=== PATIENT | female | born 1970 | race American Indian/Alaskan Native ===

== ENCOUNTER 2020-09-01 12:52 | Emergency (ER) | payer MEDICAID ==
[2020-09-01 13:33] LABS: Basophils # (Auto) 0.1 K/mm3 (0.0-0.1); Basophils % (Auto) 1.3 % (0.0-1.8); Eosinophils # (Auto) 0.1 K/mm3 (0.0-0.4); Eosinophils % (Auto) 1.1 % (0.0-4.3); Hematocrit 37.8 % (30.3-42.9); Hemoglobin 12.7 gm/dl (10.1-14.3); Lymphocytes # (Auto) 4.5 K/mm3 (1.2-5.4); Lymphocytes % (Auto) 45.2 % (13.4-35.0); Mean Corpuscular HGB Conc 34 % (30-34); Mean Corpuscular Volume 84 fl (79-97); Monocytes # (Auto) 0.5 K/mm3 (0.0-0.8); Monocytes % (Auto) 5.3 % (0.0-7.3); Platelet Count 382 K/mm3 (140-440); Red Blood Count 4.52 M/mm3 (3.65-5.03); Red Cell Distribution Width 13.5 % (13.2-15.2)
[2020-09-01 13:42] LABS: Bacteria,Urine 1+ /HPF (Negative); Bilirubin,Urine NEG (Negative); Blood,Urine NEG (Negative); Color,Urine Straw (Yellow); Mucus,Urine FEW /HPF; Protein,Urine <15 mg/dL mg/dL (Negative); Urobilinogen,Urine < 2.0 mg/dL (<2.0)
[2020-09-01 13:48] LABS: Amphetamine Screen,Urine Negative; Benzodiazepines Screen,Urine Negative; Methadone Screen,Urine Negative; Opiate Screen,Urine Negative
[2020-09-01 13:50] LABS: BUN/Creatinine Ratio 20; Blood Urea Nitrogen 18 mg/dL (7-17); Calcium 9.3 mg/dL (8.4-10.2); Hemolysis Index 11
[2020-09-01] MEDS ORDERED: INSULIN REGULAR, HUMAN 100 UNIT/ML 3ML VIAL SUB-Q ONE (13:59)
[2020-09-01 14:00] LABS: Creatine Kinase MB 3.1 ng/mL (0.0-4.0)
--- NOTE | 2020-09-01 14:00 | Emergency Department Report ---
ED General Adult HPI - General Chief complaint: Psych Stated complaint: MH EVAL Time Seen by Provider: 09/01/20 13:17 Source: patient Mode of arrival: Ambulatory Limitations: No Limitations - History of Present Illness Severity scale (0 -10): 0 - Related Data Home Medications Medication Instructions Recorded Confirmed Last Taken Amlodipine Besylate 10 mg PO QDAY 09/01/20 09/01/20 Unknown AtorvaSTATin [Lipitor] 10 mg PO QHS 09/01/20 09/01/20 Unknown Levothyroxine Sodium 125 mcg PO QAM 09/01/20 09/01/20 Unknown Metformin HCl [Glucophage] 1,000 mg PO QDAY 09/01/20 09/01/20 Unknown OXcarbazepine [Trileptal] 150 mg PO BID 09/01/20 09/01/20 Unknown Omeprazole 40 mg PO QDAY 09/01/20 09/01/20 Unknown Sertraline HCl [Zoloft] 100 mg PO QDAY 09/01/20 09/01/20 Unknown hydrOXYzine PAMOATE [Vistaril] 100 mg PO PRN PRN 09/01/20 09/01/20 Unknown Allergies Allergy/AdvReac Type Severity Reaction Status Date / Time No Known Allergies Allergy Verified 09/01/20 13:31 ED Review of Systems ROS: Stated complaint: MH EVAL Other details as noted in HPI ED Past Medical Hx - Past Medical History Previous Medical History?: Yes Hx Hypertension: Yes Hx Diabetes: Yes Hx Psychiatric Treatment: Yes (PTSD depression, Bipolar) Additional medical history: Anxiety, Traumatic head injury - Surgical History Past Surgical History?: Yes Hx Cholecystectomy: Yes Additional Surgical History: Head injury, Thyroid surgery - Social History Smoking Status: Current Every Day Smoker Substance Use Type: Alcohol, Cocaine, Marijuana, Prescribed - Medications Home Medications: Home Medications Medication Instructions Recorded Confirmed Last Taken Type Amlodipine Besylate 10 mg PO QDAY 09/01/20 09/01/20 Unknown History AtorvaSTATin [Lipitor] 10 mg PO QHS 09/01/20 09/01/20 Unknown History Levothyroxine Sodium 125 mcg PO QAM 09/01/20 09/01/20 Unknown History Metformin HCl [Glucophage] 1,000 mg PO QDAY 09/01/20 09/01/20 Unknown History OXcarbazepine [Trileptal] 150 mg PO BID 09/01/20 09/01/20 Unknown History Omeprazole 40 mg PO QDAY 09/01/20 09/01/20 Unknown History Sertraline HCl [Zoloft] 100 mg PO QDAY 09/01/20 09/01/20 Unknown History hydrOXYzine PAMOATE [Vistaril] 100 mg PO PRN PRN 09/01/20 09/01/20 Unknown History ED Physical Exam - General Limitations: No Limitations ED Course Vital Signs 09/01/20 12:59 Temperature 98 F Pulse Rate 75 Respiratory 20 Rate Blood Pressure 143/69 O2 Sat by Pulse 97 Oximetry ED Medical Decision Making - Lab Data Result diagrams: 09/01/20 13:09 09/01/20 13:09 Laboratory Results - last 24 hr 09/01/20 09/01/20 09/01/20 13:09 13:09 13:09 WBC RBC Hgb Hct MCV MCH MCHC RDW Plt Count Lymph % (Auto) [place] % (Auto) Eos % (Auto) Baso % (Auto) Lymph # (Auto) [place] # (Auto) Eos # (Auto) Baso # (Auto) Seg Neutrophils % Seg Neutrophils # Sodium 135 L Potassium 4.2 Chloride 98.1 Carbon Dioxide 22 Anion Gap 19 BUN 18 H Creatinine 0.9 Estimated GFR > 60 BUN/Creatinine Ratio 20 Glucose 395 H Calcium 9.3 Urine Color Urine Turbidity Urine pH Ur Specific [place] Urine Protein Urine Glucose (UA) Urine Ketones Urine Blood Urine Nitrite Urine Bilirubin Urine Urobilinogen Ur Leukocyte Esterase Urine WBC (Auto) Urine RBC (Auto) U Epithel Cells (Auto) Urine Bacteria (Auto) Urine Mucus Salicylates < 0.3 L Urine Opiates Screen Urine Methadone Screen Acetaminophen 5.0 L Ur Barbiturates Screen Ur Phencyclidine Scrn Ur Amphetamines Screen U Benzodiazepines Scrn Plasma/Serum Alcohol 09/01/20 09/01/20 09/01/20 13:09 13:09 13:21 WBC 9.9 RBC 4.52 Hgb 12.7 Hct 37.8 MCV 84 MCH 28 MCHC 34 RDW 13.5 Plt Count 382 Lymph % (Auto) 45.2 H [place] % (Auto) 5.3 Eos % (Auto) 1.1 Baso % (Auto) 1.3 Lymph # (Auto) 4.5 [place] # (Auto) 0.5 Eos # (Auto) 0.1 Baso # (Auto) 0.1 Seg Neutrophils % 47.1 Seg Neutrophils # 4.7 Sodium Potassium Chloride Carbon Dioxide Anion Gap BUN Creatinine Estimated GFR BUN/Creatinine Ratio Glucose Calcium Urine Color Straw Urine Turbidity Clear Urine pH 5.0 Ur Specific [place] 1.025 Urine Protein <15 mg/dl Urine Glucose (UA) >=500 Urine Ketones Neg Urine Blood Neg Urine Nitrite Neg Urine Bilirubin Neg Urine Urobilinogen < 2.0 Ur Leukocyte Esterase Neg Urine WBC (Auto) 2.0 Urine RBC (Auto) 2.0 U Epithel Cells (Auto) 2.0 Urine Bacteria (Auto) 1+ Urine Mucus Few Salicylates Urine Opiates Screen Urine Methadone Screen Acetaminophen Ur Barbiturates Screen Ur Phencyclidine Scrn Ur Amphetamines Screen U Benzodiazepines Scrn Plasma/Serum Alcohol < 0.01 09/01/20 13:21 WBC RBC Hgb Hct MCV MCH MCHC RDW Plt Count Lymph % (Auto) [place] % (Auto) Eos % (Auto) Baso % (Auto) Lymph # (Auto) [place] # (Auto) Eos # (Auto) Baso # (Auto) Seg Neutrophils % Seg Neutrophils # Sodium Potassium Chloride Carbon Dioxide Anion Gap BUN Creatinine Estimated GFR BUN/Creatinine Ratio Glucose Calcium Urine Color Urine Turbidity Urine pH Ur Specific [place] Urine Protein Urine Glucose (UA) Urine Ketones Urine Blood Urine Nitrite Urine Bilirubin Urine Urobilinogen Ur Leukocyte Esterase Urine WBC (Auto) Urine RBC (Auto) U Epithel Cells (Auto) Urine Bacteria (Auto) Urine Mucus Salicylates Urine Opiates Screen Negative Urine Methadone Screen Negative Acetaminophen Ur Barbiturates Screen Negative Ur Phencyclidine Scrn Negative Ur Amphetamines Screen Negative U Benzodiazepines Scrn Negative Plasma/Serum Alcohol Critical care attestation.: If time is entered above; I have spent that time in minutes in the direct care of this critically ill patient, excluding procedure time. ED Disposition Condition: Stable
[2020-09-01 14:01] LABS: Alanine Aminotransferase 33 units/L (7-56); Albumin 4.3 g/dL (3.9-5)
[2020-09-01 14:04] LABS: Bilirubin,Direct < 0.2 mg/dL (0-0.2)
[2020-09-01] MEDS ORDERED: ALUM-MAG HYDROXIDE-SIMETHICONE 200-200-20MG/5ML ORAL LIQD 30 ML PO PRN (14:06)
[2020-09-01] MEDS ORDERED: MAGNESIUM HYDROXIDE (MOM) ORAL LIQD UDC PO PRN (14:06)
[2020-09-01] MEDS ORDERED: ACETAMINOPHEN 325 MG TAB PO PRN (14:06)
--- NOTE | 2020-09-01 14:14 | Emergency Department Report ---
ED Psych HPI - General Chief Complaint: Psych Stated Complaint: MH EVAL Time Seen by Provider: 09/01/20 13:17 Source: patient Mode of arrival: Ambulatory - History of Present Illness Initial Comments: This is a 50-year-old type II diabetic female with history of hypertension and m ental health disorder. She states that she was last admitted to a mental health facility approximately 2 years ago. This is her first apparent visit to this facility within our electronic medical record system. She does bring her prescription bottles along with her. Her compliance is questionable. She is here she states because of a failed meeting with her related to breaking a lease. She states that she has been depressed for quite some time because of his infidelity. She states that she did not meet with him because he was with another woman. It appears that she does have delusional content affecting her ideation and affect. She is emotionally labile. She denies hallucinosis. She was said to be "paranoid" at triage. When asked why she directed herself to the emergency room today she told me, "I want to get a gun so my would hurt like I do". She does not admit any violent behavior, self-destructive behavior or paranoid ideation per se. She is not voicing any medical type symptoms other than vague abdominal discomfort and running out of her gabapentin. MD Complaint: suicidal ideation (Did also mention of suicidal ideation as well as homicidal thoughts) -: days(s) (Perhaps this is recurrent. No prior records available.) Associated Psychiatric Symptoms: suicidal ideation, homicidal ideation History of same: Yes Quality: constant Improves With: none Worsens With: none Context: not taking psychiatric (Possibly) Associated Symptoms: denies other symptoms (Denies listed symptoms) Treatments Prior to Arrival: none If Self Harm: admits thoughts of - Related Data Home Medications Medication Instructions Recorded Confirmed Last Taken Amlodipine Besylate 10 mg PO QDAY 09/01/20 09/01/20 Unknown AtorvaSTATin [Lipitor] 10 mg PO QHS 09/01/20 09/01/20 Unknown Levothyroxine Sodium 125 mcg PO QAM 09/01/20 09/01/20 Unknown Metformin HCl [Glucophage] 1,000 mg PO QDAY 09/01/20 09/01/20 Unknown OXcarbazepine [Trileptal] 150 mg PO BID 09/01/20 09/01/20 Unknown Omeprazole 40 mg PO QDAY 09/01/20 09/01/20 Unknown Sertraline HCl [Zoloft] 100 mg PO QDAY 09/01/20 09/01/20 Unknown hydrOXYzine PAMOATE [Vistaril] 100 mg PO PRN PRN 09/01/20 09/01/20 Unknown Allergies Allergy/AdvReac Type Severity Reaction Status Date / Time No Known Allergies Allergy Verified 09/01/20 13:31 ED Review of Systems ROS: Stated complaint: MH EVAL Other details as noted in HPI Constitutional: denies: chills, fever Eyes: denies: eye pain, eye discharge, vision change ENT: denies: ear pain, throat pain Respiratory: denies: cough, shortness of breath, wheezing Cardiovascular: denies: chest pain, palpitations Endocrine: no symptoms reported Gastrointestinal: abdominal pain (Vague abdominal discomfort). denies: nausea, diarrhea Genitourinary: denies: urgency, dysuria, discharge Musculoskeletal: denies: back pain, joint swelling, arthralgia Skin: denies: rash, lesions Neurological: denies: headache, weakness, paresthesias Psychiatric: denies: anxiety, depression Hematological/Lymphatic: denies: easy bleeding, easy bruising ED Past Medical Hx - Past Medical History Previous Medical History?: Yes Hx Hypertension: Yes Hx Diabetes: Yes Hx Psychiatric Treatment: Yes (PTSD depression, Bipolar) Additional medical history: Anxiety, Traumatic head injury - Surgical History Past Surgical History?: Yes Hx Cholecystectomy: Yes Additional Surgical History: Head injury, Thyroid surgery - Social History Smoking Status: Current Every Day Smoker Substance Use Type: Alcohol, Cocaine, Marijuana, Prescribed - Medications Home Medications: Home Medications Medication Instructions Recorded Confirmed Last Taken Type Amlodipine Besylate 10 mg PO QDAY 09/01/20 09/01/20 Unknown History AtorvaSTATin [Lipitor] 10 mg PO QHS 09/01/20 09/01/20 Unknown History Levothyroxine Sodium 125 mcg PO QAM 09/01/20 09/01/20 Unknown History Metformin HCl [Glucophage] 1,000 mg PO QDAY 09/01/20 09/01/20 Unknown History OXcarbazepine [Trileptal] 150 mg PO BID 09/01/20 09/01/20 Unknown History Omeprazole 40 mg PO QDAY 09/01/20 09/01/20 Unknown History Sertraline HCl [Zoloft] 100 mg PO QDAY 09/01/20 09/01/20 Unknown History hydrOXYzine PAMOATE [Vistaril] 100 mg PO PRN PRN 09/01/20 09/01/20 Unknown History ED Physical Exam - General Limitations: Physical Limitation, Other (Psychiatric disorder) General appearance: alert, in no apparent distress - Head Head exam: Present: atraumatic, normocephalic - Eye Eye exam: Present: normal appearance. Absent: scleral icterus - ENT ENT exam: Present: mucous membranes moist - Neck Neck exam: Present: normal inspection - Respiratory Respiratory exam: Present: normal lung sounds bilaterally. Absent: respiratory distress - Cardiovascular Cardiovascular Exam: Present: regular rate, normal rhythm. Absent: systolic murmur, diastolic murmur, rubs, gallop - GI/Abdominal GI/Abdominal exam: Present: soft, normal bowel sounds. Absent: distended, tenderness, guarding, rebound, rigid - Extremities Exam Extremities exam: Present: normal inspection - Back Exam Back exam: Present: normal inspection - Neurological Exam Neurological exam: Present: alert, oriented X3, CN II-XII intact, normal gait. Absent: motor sensory deficit - Psychiatric Psychiatric exam: Present: agitated, anxious, flat affect - Skin Skin exam: Present: warm, dry, intact, normal color. Absent: rash ED Course Vital Signs 09/01/20 12:59 Temperature 98 F Pulse Rate 75 Respiratory 20 Rate Blood Pressure 143/69 O2 Sat by Pulse 97 Oximetry - Reevaluation(s) Reevaluation #1: 1013 was initiated. Medical management of the patient's hyperglycemia was initiated. 09/01/20 14:17 ED Medical Decision Making - Lab Data Result diagrams: 09/01/20 13:09 09/01/20 13:09 Laboratory Results - last 24 hr 09/01/20 09/01/20 09/01/20 13:09 13:09 13:09 WBC RBC Hgb Hct MCV MCH MCHC RDW Plt Count Lymph % (Auto) [place] % (Auto) Eos % (Auto) Baso % (Auto) Lymph # (Auto) [place] # (Auto) Eos # (Auto) Baso # (Auto) Seg Neutrophils % Seg Neutrophils # Sodium 135 L Potassium 4.2 Chloride 98.1 Carbon Dioxide 22 Anion Gap 19 BUN 18 H Creatinine 0.9 Estimated GFR > 60 BUN/Creatinine Ratio 20 Glucose 395 H Calcium 9.3 Magnesium Total Bilirubin Direct Bilirubin AST ALT Alkaline Phosphatase Total Creatine Kinase CK-MB (CK-2) CK-MB (CK-2) Rel Index Total Protein Albumin Albumin/Globulin Ratio Urine Color Urine Turbidity Urine pH Ur Specific [place] Urine Protein Urine Glucose (UA) Urine Ketones Urine Blood Urine Nitrite Urine Bilirubin Urine Urobilinogen Ur Leukocyte Esterase Urine WBC (Auto) Urine RBC (Auto) U Epithel Cells (Auto) Urine Bacteria (Auto) Urine Mucus Salicylates < 0.3 L Urine Opiates Screen Urine Methadone Screen Acetaminophen 5.0 L Ur Barbiturates Screen Ur Phencyclidine Scrn Ur Amphetamines Screen U Benzodiazepines Scrn Plasma/Serum Alcohol 09/01/20 09/01/20 09/01/20 13:09 13:09 13:09 WBC 9.9 RBC 4.52 Hgb 12.7 Hct 37.8 MCV 84 MCH 28 MCHC 34 RDW 13.5 Plt Count 382 Lymph % (Auto) 45.2 H [place] % (Auto) 5.3 Eos % (Auto) 1.1 Baso % (Auto) 1.3 Lymph # (Auto) 4.5 [place] # (Auto) 0.5 Eos # (Auto) 0.1 Baso # (Auto) 0.1 Seg Neutrophils % 47.1 Seg Neutrophils # 4.7 Sodium Potassium Chloride Carbon Dioxide Anion Gap BUN Creatinine Estimated GFR BUN/Creatinine Ratio Glucose Calcium Magnesium 1.60 L Total Bilirubin 0.30 Direct Bilirubin < 0.2 AST 24 ALT 33 Alkaline Phosphatase 133 H Total Creatine Kinase 226 H CK-MB (CK-2) 3.1 CK-MB (CK-2) Rel Index 1.3 Total Protein 7.6 Albumin 4.3 Albumin/Globulin Ratio 1.3 Urine Color Urine Turbidity Urine pH Ur Specific [place] Urine Protein Urine Glucose (UA) Urine Ketones Urine Blood Urine Nitrite Urine Bilirubin Urine Urobilinogen Ur Leukocyte Esterase Urine WBC (Auto) Urine RBC (Auto) U Epithel Cells (Auto) Urine Bacteria (Auto) Urine Mucus Salicylates Urine Opiates Screen Urine Methadone Screen Acetaminophen Ur Barbiturates Screen Ur Phencyclidine Scrn Ur Amphetamines Screen U Benzodiazepines Scrn Plasma/Serum Alcohol < 0.01 09/01/20 09/01/20 13:21 13:21 WBC RBC Hgb Hct MCV MCH MCHC RDW Plt Count Lymph % (Auto) [place] % (Auto) Eos % (Auto) Baso % (Auto) Lymph # (Auto) [place] # (Auto) Eos # (Auto) Baso # (Auto) Seg Neutrophils % Seg Neutrophils # Sodium Potassium Chloride Carbon Dioxide Anion Gap BUN Creatinine Estimated GFR BUN/Creatinine Ratio Glucose Calcium Magnesium Total Bilirubin Direct Bilirubin AST ALT Alkaline Phosphatase Total Creatine Kinase CK-MB (CK-2) CK-MB (CK-2) Rel Index Total Protein Albumin Albumin/Globulin Ratio Urine Color Straw Urine Turbidity Clear Urine pH 5.0 Ur Specific [place] 1.025 Urine Protein <15 mg/dl Urine Glucose (UA) >=500 Urine Ketones Neg Urine Blood Neg Urine Nitrite Neg Urine Bilirubin Neg Urine Urobilinogen < 2.0 Ur Leukocyte Esterase Neg Urine WBC (Auto) 2.0 Urine RBC (Auto) 2.0 U Epithel Cells (Auto) 2.0 Urine Bacteria (Auto) 1+ Urine Mucus Few Salicylates Urine Opiates Screen Negative Urine Methadone Screen Negative Acetaminophen Ur Barbiturates Screen Negative Ur Phencyclidine Scrn Negative Ur Amphetamines Screen Negative U Benzodiazepines Scrn Negative Plasma/Serum Alcohol Critical care attestation.: If time is entered above; I have spent that time in minutes in the direct care of this critically ill patient, excluding procedure time. ED Disposition Clinical Impression: Homicidal ideation, Suicidal ideation Major depressive disorder Qualifiers: Major depression recurrence: recurrent Active/Remission status: currently active Major depression episode severity: severe Psychotic features: with psyc hotic features Qualified Code(s): F33.3 - Major depressive disorder, recurrent, severe with psychotic symptoms Hyperglycemia due to type 2 diabetes mellitus Qualifiers: Diabetes mellitus bed bug exterminator insulin use: without bed bug exterminator use Qualified Code(s): E11.65 - Type 2 diabetes mellitus with hyperglycemia Disposition: [id number]/TX-65 PSY HOSP/PSY UNIT Is pt being admited?: No Does the pt Need Aspirin: No Condition: Stable Instructions: Diabetes Mellitus Type 2 in Adults (ED) Referrals: PRIMARY CARE, [Primary Care Provider] - 3-5 Days Time of Disposition: 14:17
[2020-09-01] MEDS ORDERED: amLODIPine 5 MG TAB PO ONE (14:18)
[2020-09-01] MEDS ORDERED: PANTOPRAZOLE 40 MG TAB PO ONE (14:18)
[2020-09-01 14:25] LABS: Cannabinoid Screen,Urine Positive; Cocaine Screen,Urine Positive
[2020-09-01] MEDS ORDERED: INSULIN REGULAR, HUMAN 100 UNITS/1 ML ONE (15:00)
[2020-09-01] MEDS: hydrOXYzine PAMOATE 25 MG CAP PO PRN ×2 (15:28→23:15)
[2020-09-01] MEDS: SERTRALINE 50 MG TAB PO SCH (15:29)
[2020-09-01] MEDS: metFORMIN 500 MG TAB PO SCH (23:10)
[2020-09-01] MEDS: GABAPENTIN 300 MG CAP PO SCH (23:14)
[2020-09-02] MEDS: metFORMIN 500 MG TAB PO SCH ×2 (08:35→18:56)
--- NOTE | 2020-09-02 09:42 | Consultation ---
History of Present Illness - Reason for Consult Consult date: 09/02/20 Reason for consult: depression, suicidal - History of Present Psychiatric Illness Rose Paul is a 50y/o famale who presented to the ER for depression and suicidal thoughts due to her 's infidelity. During my interview with the patient today she was lying down. She is a/o x 3. She is tearful during the interview. The patient says "my has been cheating with women who are supposed to be my friend and it made me suicidal." She then says, "I want to kill both of them, him and her both." She says her was "sending me mixed signal and I feel trapped." The patient says she "didn't know what else to do but come here to keep from doing something stupid." She verbalized being " depressed." The patient also verbalizes "weed and cocaine." She says recently she "binge drink" but it's usually not a problem. She denies any suicide attempts in the past. The patient says she sees "little things crawling." PAST PSYCHIATRIC HISTORY Diagnoses: Bipolar, depression, PTSD Suicide attempts or Self-harm behavior: Denies Prior psychiatric hospitalizations: Yes Substance Abuse history: meth, THS Previous psychiatric medications tried: zoloft, trileptal Outpatient treatment: not currently PAST MEDICAL HISTORY: None reported Family Psychiatric History: None reported or documented SOCIAL HISTORY Marital Status: Living Arrangements: with sons Employment Status: Unemployed Access to guns/weapons: Denies Education: 12th grade History of Abuse: Denies Legal History: Yes REVIEW OF SYSTEMS Constitutional: Negative for weight loss ENT: Negative for stridor Respiratory: Negative for cough or hemoptysis All other systems reviewed and are negative MENTAL STATUS EXAMINATION General Appearance and Behavior: Age appropriate, good hygiene, not wearing appropriate clothes, good eye contact, cooperative polite with questioning. Cooperation: Participating/engaged Psychomotor Behavior: Psychomotor normal Mood: "depressed" Affect and affective range: Tearful Thought Process: goal directed Thought Content: None Speech: Normal tone and pace Suicidal Ideation: Yes Homicidal Ideation: Yes Hallucinations: Visual Delusions: None elicited Impulse Control: Impaired Insight and Judgment: Limited insight and judgment Memory: Normal Attention: limited Orientation: Alert, oriented, Assessment and Plan Bipolar Disorder, Current Episode Depressed with Psychotic Features Cocaine Use Disorder Noncompliance with other medical treatment and regimen Treatment 1013 agree with Zoloft and vistaril Start Depakote DR 125mg po BID Start Trazodone 50mg po qhs Start Risperidone 0.25mg po BID Medical: Per primary Sitter: Defer to [facility] Disposition: Recommend acute inpatient treatment Will follow on Thursday if not transferred. Medications and Allergies Allergies Allergy/AdvReac Type Severity Reaction Status Date / Time No Known Allergies Allergy Verified 09/01/20 13:31 Home Medications Medication Instructions Recorded Confirmed Last Taken Type Amlodipine Besylate 10 mg PO QDAY 09/01/20 09/01/20 Unknown History AtorvaSTATin [Lipitor] 10 mg PO QHS 09/01/20 09/01/20 Unknown History Levothyroxine Sodium 125 mcg PO QAM 09/01/20 09/01/20 Unknown History Metformin HCl [Glucophage] 1,000 mg PO QDAY 09/01/20 09/01/20 Unknown History OXcarbazepine [Trileptal] 150 mg PO BID 09/01/20 09/01/20 Unknown History Omeprazole 40 mg PO QDAY 09/01/20 09/01/20 Unknown History Sertraline HCl [Zoloft] 100 mg PO QDAY 09/01/20 09/01/20 Unknown History hydrOXYzine PAMOATE [Vistaril] 100 mg PO PRN PRN 09/01/20 09/01/20 Unknown History Active Meds: Active Medications Acetaminophen (Tylenol) 650 mg PO Q4HR PRN PRN Reason: Pain MILD(1-3)/Fever >100.5/ROBERTSON Al Hydrox/Mg Hydrox/Simethicone (Alum-Mag Hydrox-Simeth [phone]/5ml) 30 ml PO Q4HR PRN PRN Reason: Indigestion Atorvastatin Calcium (Atorvastatin) 10 mg PO QHS [facility] Last Admin: 09/01/20 23:11 Dose: 10 mg Documented by: Gabapentin (Gabapentin) 300 mg PO BID [facility] Last Admin: 09/01/20 23:14 Dose: 300 mg Documented by: Hydroxyzine Pamoate (Vistaril) 50 mg PO Q6H PRN PRN Reason: Anxiety Last Admin: 09/01/20 23:15 Dose: 50 mg Documented by: Magnesium Hydroxide (Milk Of Magnesia) 30 ml PO Q12HR PRN PRN Reason: Constipation Metformin HCl (Glucophage) 1,000 mg PO BIDDIAB [facility] Last Admin: 09/02/20 08:35 Dose: 1,000 mg Documented by: Sertraline HCl (Zoloft) 50 mg PO DAILY [facility] Last Admin: 09/01/20 15:29 Dose: 50 mg Documented by: Mental Status Exam - Vital signs Last Vital Signs Temp 98.5 F 09/02/20 09:15 Pulse 67 09/02/20 09:15 Resp 17 09/02/20 09:15 BP 147/82 09/02/20 09:15 Pulse Ox 100 09/02/20 09:15 Results Result Diagrams: 09/01/20 13:09 09/01/20 13:09 Abnormal lab results 09/01/20 09/01/20 09/01/20 Range/Units 13:09 13:09 13:09 Lymph % (Auto) (13.4-35.0) % Sodium 135 L (137-145) mmol/L BUN 18 H (7-17) mg/dL Glucose 395 H (65-100) mg/dL POC Glucose (70-105) mg/dL Magnesium (1.7-2.3) mg/dL Alkaline Phosphatase (35-129) units/L Total Creatine Kinase (30-135) units/L Salicylates < 0.3 L (2.8-20.0) mg/dL Acetaminophen 5.0 L (10.0-30.0) ug/mL 09/01/20 09/01/20 09/01/20 Range/Units 13:09 13:09 15:23 Lymph % (Auto) 45.2 H (13.4-35.0) % Sodium (137-145) mmol/L BUN (7-17) mg/dL Glucose (65-100) mg/dL POC Glucose 329 H (70-105) mg/dL Magnesium 1.60 L (1.7-2.3) mg/dL Alkaline Phosphatase 133 H (35-129) units/L Total Creatine Kinase 226 H (30-135) units/L Salicylates (2.8-20.0) mg/dL Acetaminophen (10.0-30.0) ug/mL 09/01/20 09/01/20 09/02/20 Range/Units 16:55 23:26 08:07 Lymph % (Auto) (13.4-35.0) % Sodium (137-145) mmol/L BUN (7-17) mg/dL Glucose (65-100) mg/dL POC Glucose 298 H 346 H 248 H (70-105) mg/dL Magnesium (1.7-2.3) mg/dL Alkaline Phosphatase (35-129) units/L Total Creatine Kinase (30-135) units/L Salicylates (2.8-20.0) mg/dL Acetaminophen (10.0-30.0) ug/mL All other labs normal.
[2020-09-02] MEDS ORDERED: DIVALPROEX DR 125 MG TAB PO SCH (10:00)
[2020-09-02] MEDS ORDERED: risperiDONE 0.25 MG TAB PO SCH (10:00)
[2020-09-02] MEDS: SERTRALINE 50 MG TAB PO SCH (11:04)
[2020-09-02] MEDS: GABAPENTIN 300 MG CAP PO SCH (11:05)
[2020-09-02] MEDS ORDERED: DEXTROSE 50% IN WATER (25GM) 50 ML SYRINGE IV PRN (12:21)
[2020-09-02] MEDS ORDERED: INSULIN REGULAR, HUMAN 100 UNITS/1 ML ONE ×2 (12:30)
[2020-09-02] MEDS: INSULIN REGULAR, HUMAN 100 UNIT/ML 3ML VIAL SUB-Q SCH ×2 (12:33→16:50)
[2020-09-02 20:20] VITALS: BP 140/79
[2020-09-02] MEDS ORDERED: traZODone 50 MG TAB PO SCH (22:00)
== END 2020-09-02 20:36 ==
LOC: ED 12:52
DX: F32.0 Major depressive disorder, single episode, mild (principal); E11.65 Type 2 diabetes mellitus with hyperglycemia; F43.11 Post-traumatic stress disorder, acute; F31.9 Bipolar disorder, unspecified; I10 Essential (primary) hypertension; F17.200 Nicotine dependence, unspecified, uncomplicated; F12.10 Cannabis abuse, uncomplicated; F14.10 Cocaine abuse, uncomplicated; Z90.49 Acquired absence of other specified parts of digestive tract; Z98.890 Other specified postprocedural states; Z79.899 Other long term (current) drug therapy
CPT/HCPCS: 36415; 80048; 80076; 80307; 81001; 82550; 82553; 82962; 83735; 85025; 96372; 99284; A9270; Q0177; U0003; 80320; G0480; J1815

== ENCOUNTER 2020-09-02 15:04 | Inpatient (IN) | payer MEDICAID ==
[2020-09-02] MEDS: traZODone 50 MG TAB PO SCH (22:03)
[2020-09-02] MEDS: INSULIN LISPRO 100 UNIT/ML VIAL 3 mL SUB-Q SCH (22:10)
[2020-09-03 06:51] LABS: Chol/HDL Ratio 3.44 %
[2020-09-03] MEDS: INSULIN LISPRO 100 UNIT/ML VIAL 3 mL SUB-Q SCH ×4 (08:06→22:04)
--- NOTE | 2020-09-03 08:16 | Consultation ---
History of Present Illness - Reason for Consult Consult date: 09/03/20 Reason for consult: SI - History of Present Psychiatric Illness Rose Paul is a 50y/o female who I first saw yesterday in the ER. The patient presented to the ER for depression and suicidal thoughts due to her 's infidelity. During my interview with the patient yesterday, she is tearful during the interview. She verbalized being very depressed. She says her has been cheating with women who is supposed to be her friend and it made her suicidal. The patient also expressed at that time that "I want to kill both of them, him and her both." The patient also had visual hallucinations of "little things crawling on her." During my interview with the patient today, she is sitting in the dayroom. She appears to be doing slightly better. The patient verbalizes feeling "a little better." She says, "I remember the talk you gave me yesterday. I just gotta remain focused now." The denies having the auditory hallucinations today. She says "not since yesterday." She also still verbalizes feeling depressed and wanting to "hurt somebody." She says eating cream of wheat brought back memories of her . The patient also verbalizes "weed and cocaine." She says recently she "binge drink" but it's usually not a problem. She denies any suicide attempts in the past. PAST PSYCHIATRIC HISTORY Diagnoses: Bipolar, depression, PTSD Suicide attempts or Self-harm behavior: Denies Prior psychiatric hospitalizations: Yes Substance Abuse history: meth, THS Previous psychiatric medications tried: zoloft, trileptal Outpatient treatment: not currently PAST MEDICAL HISTORY: None reported Family Psychiatric History: None reported or documented SOCIAL HISTORY Marital Status: Living Arrangements: with sons Employment Status: Unemployed Access to guns/weapons: Denies Education: 12th grade History of Abuse: Denies Legal History: Yes REVIEW OF SYSTEMS Constitutional: Negative for weight loss ENT: Negative for stridor Respiratory: Negative for cough or hemoptysis All other systems reviewed and are negative MENTAL STATUS EXAMINATION General Appearance and Behavior: Age appropriate, good hygiene, not wearing appropriate clothes, good eye contact, cooperative polite with questioning. Cooperation: Participating/engaged Psychomotor Behavior: Psychomotor normal Mood: "depressed" Affect and affective range: Tearful Thought Process: goal directed Thought Content: None Speech: Normal tone and pace Suicidal Ideation: Yes Homicidal Ideation: Yes Hallucinations: Visual yesterday, but denies yesterday Delusions: None elicited Impulse Control: Impaired Insight and Judgment: Limited insight and judgment Memory: Normal Attention: limited Orientation: Alert, oriented, Assessment and Plan Bipolar Disorder, Current Episode Depressed with Psychotic Features Cocaine Use Disorder Noncompliance with other medical treatment and regimen Treatment Plan Patient admitted for inpatient psychiatric evaluation, medication adjustment and close monitoring The patient's behavior, mood, sleep and appetite will be closely monitored. Patient enrolled in individual and group therapeutic sessions and encouraged to attend. Patient provided with a safe and structured environment. Patient's physical health needs will be addressed by the Hospitalist. Hospitalist Consulted Labs including CBC, CMP, Lipid profile and Hemoglobin A1C levels ordered for baseline reference Social Assessment will be completed and the Pipefitter Helper will work with patient and family to ensure a suitable and safe disposition Medication adjustment will be made as clinically indicated Decreased Vistaril Started Risperidone 0.25mg po BID Usual Wellness Evangelical/Preservation: - Start Trazodone 50 mg po QHS - Start Melatonin 5 mg po QHS to promote circadian rhythm - Start [place]-3 for brain health, reduce impulsivity, and as adjunctive treatment for mood disorder, continue upon discharge given overall benefits. - Start B1 prophylaxis with 200 mg po for 5 days The patient agreed on the treatment plan, understood the risk, benefit, alternative treatment, potential consequence of no treatment, and gave informed consent. Initial Certification I certify that the inpatient psychiatric services are required for treatment that could reasonably be expected to improve the patient's condition for depression, suicidal/homicidal thoughts, and hallucinations. Estimated days: 7 Post hospital care: primary care provider, psychiatric provider Medications and Allergies Allergies Allergy/AdvReac Type Severity Reaction Status Date / Time No Known Allergies Allergy Verified 09/01/20 13:31 Home Medications Medication Instructions Recorded Confirmed Last Taken Type Amlodipine Besylate 10 mg PO QDAY 09/01/20 09/02/20 Unknown History AtorvaSTATin [Lipitor] 10 mg PO QHS 09/01/20 09/02/20 Unknown History Levothyroxine Sodium 125 mcg PO QAM 09/01/20 09/02/20 Unknown History Metformin HCl [Glucophage] 1,000 mg PO QDAY 09/01/20 09/02/20 Unknown History OXcarbazepine [Trileptal] 150 mg PO BID 09/01/20 09/02/20 Unknown History Omeprazole 40 mg PO QDAY 09/01/20 09/02/20 Unknown History Sertraline HCl [Zoloft] 100 mg PO QDAY 09/01/20 09/02/20 Unknown History hydrOXYzine PAMOATE [Vistaril] 100 mg PO TID PRN 09/01/20 09/02/20 Unknown History Active Meds: Active Medications Insulin Human Lispro (Humalog) 0 unit SUB-Q [facility]; Protocol Last Admin: 09/02/20 22:10 Dose: 4 unit Documented by: [facility] Last Admin: 09/02/20 22:03 Dose: 50 mg Documented by: Mental Status Exam - Vital signs Last Vital Signs Temp 98.4 F 09/02/20 22:00 Pulse 76 09/02/20 22:00 Resp 18 09/02/20 22:00 BP 128/75 09/02/20 22:00 Pulse Ox 97 09/02/20 22:00 Results Abnormal lab results 09/02/20 09/03/20 09/03/20 Range/Units 20:58 06:17 06:17 POC Glucose 269 H (70-105) mg/dL Hemoglobin A1c 9.9 H (4-6) % Triglycerides 283 H (2-149) mg/dL TSH (0.270-4.200) mlU/mL 09/03/20 09/03/20 Range/Units 06:17 06:27 POC Glucose 229 H (70-105) mg/dL Hemoglobin A1c (4-6) % Triglycerides (2-149) mg/dL TSH 8.580 H (0.270-4.200) mlU/mL All other labs normal.
--- NOTE | 2020-09-03 08:41 | History and Physical Report ---
GP History & Physical - History of Present Illness Date of admission: 09/02/20 Date of Examination: 09/03/20 Reason for Admission: Danger to self, Danger to others, Severe anxiety/depression History of Present Illness: - History of Present Psychiatric Illness Rose Paul is a 50y/o female who I first saw yesterday in the ER. The patient presented to the ER for depression and suicidal thoughts due to her 's infidelity. During my interview with the patient yesterday, she is tearful during the interview. She verbalized being very depressed. She says her has been cheating with women who is supposed to be her friend and it made her suicidal. The patient also expressed at that time that "I want to kill both of them, him and her both." The patient also had visual hallucinations of "little things crawling on her." During my interview with the patient today, she is sitting in the dayroom. She appears to be doing slightly better. The patient verbalizes feeling "a little better." She says, "I remember the talk you gave me yesterday. I just gotta remain focused now." The denies having the auditory hallucinations today. She says "not since yesterday." She also still verbalizes feeling depressed and wanting to "hurt somebody." She says eating cream of wheat brought back memories of her . The patient also verbalizes "weed and cocaine." She says recently she "binge drink" but it's usually not a problem. She denies any suicide attempts in the past. PAST PSYCHIATRIC HISTORY Diagnoses: Bipolar, depression, PTSD Suicide attempts or Self-harm behavior: Denies Prior psychiatric hospitalizations: Yes Substance Abuse history: meth, THS Previous psychiatric medications tried: zoloft, trileptal Outpatient treatment: not currently PAST MEDICAL HISTORY: None reported Family Psychiatric History: None reported or documented SOCIAL HISTORY Marital Status: Living Arrangements: with sons Employment Status: Unemployed Access to guns/weapons: Denies Education: 12th grade History of Abuse: Denies Legal History: Yes REVIEW OF SYSTEMS Constitutional: Negative for weight loss ENT: Negative for stridor Respiratory: Negative for cough or hemoptysis All other systems reviewed and are negative MENTAL STATUS EXAMINATION General Appearance and Behavior: Age appropriate, good hygiene, not wearing appropriate clothes, good eye contact, cooperative polite with questioning. Cooperation: Participating/engaged Psychomotor Behavior: Psychomotor normal Mood: "depressed" Affect and affective range: Tearful Thought Process: goal directed Thought Content: None Speech: Normal tone and pace Suicidal Ideation: Yes Homicidal Ideation: Yes Hallucinations: Visual yesterday, but denies yesterday Delusions: None elicited Impulse Control: Impaired Insight and Judgment: Limited insight and judgment Memory: Normal Attention: limited Orientation: Alert, oriented, Assessment and Plan Bipolar Disorder, Current Episode Depressed with Psychotic Features Cocaine Use Disorder Noncompliance with other medical treatment and regimen Treatment Plan Patient admitted for inpatient psychiatric evaluation, medication adjustment and close monitoring The patient's behavior, mood, sleep and appetite will be closely monitored. Patient enrolled in individual and group therapeutic sessions and encouraged to attend. Patient provided with a safe and structured environment. Patient's physical health needs will be addressed by the Hospitalist. Hospitalist Consulted Labs including CBC, CMP, Lipid profile and Hemoglobin A1C levels ordered for baseline reference Social Assessment will be completed and the Deck Engine Operator will work with patient and family to ensure a suitable and safe disposition Medication adjustment will be made as clinically indicated Decreased Vistaril Started Risperidone 0.25mg po BID Usual Wellness Jehovah'S Witness/Preservation: - Start Trazodone 50 mg po QHS - Start Melatonin 5 mg po QHS to promote circadian rhythm - Start [place]-3 for brain health, reduce impulsivity, and as adjunctive treatment for mood disorder, continue upon discharge given overall benefits. - Start B1 prophylaxis with 200 mg po for 5 days The patient agreed on the treatment plan, understood the risk, benefit, alternative treatment, potential consequence of no treatment, and gave informed consent. Initial Certification I certify that the inpatient psychiatric services are required for treatment that could reasonably be expected to improve the patient's condition for depression, suicidal/homicidal thoughts, and hallucinations. Estimated days: 7 Post hospital care: primary care provider, psychiatric provider Legal Status: Voluntary Reaction to Hospitalization: Accepting Medications and Allergies Allergies Allergy/AdvReac Type Severity Reaction Status Date / Time No Known Allergies Allergy Verified 09/01/20 13:31 Home Medications Medication Instructions Recorded Confirmed Last Taken Type Amlodipine Besylate 10 mg PO QDAY 09/01/20 09/02/20 Unknown History AtorvaSTATin [Lipitor] 10 mg PO QHS 09/01/20 09/02/20 Unknown History Levothyroxine Sodium 125 mcg PO QAM 09/01/20 09/02/20 Unknown History Metformin HCl [Glucophage] 1,000 mg PO QDAY 09/01/20 09/02/20 Unknown History OXcarbazepine [Trileptal] 150 mg PO BID 09/01/20 09/02/20 Unknown History Omeprazole 40 mg PO QDAY 09/01/20 09/02/20 Unknown History Sertraline HCl [Zoloft] 100 mg PO QDAY 09/01/20 09/02/20 Unknown History hydrOXYzine PAMOATE [Vistaril] 100 mg PO TID PRN 09/01/20 09/02/20 Unknown History Active Meds: Active Medications Amlodipine Besylate (Amlodipine) 10 mg PO DAILY [facility] Atorvastatin Calcium (Atorvastatin) 10 mg PO QHS [facility] Hydroxyzine Pamoate (Vistaril) 50 mg PO TID PRN PRN Reason: Anxiety Insulin Human Lispro (Humalog) 0 unit SUB-Q [facility]; Protocol Last Admin: 09/03/20 08:06 Dose: 3 unit Documented by: Levothyroxine Sodium (Synthroid) 125 mcg PO DAILY@0600 [facility] Metformin HCl (Glucophage Xr) 1,000 mg PO QDDIAB [facility] Miscellaneous Medication (Omeprazole [Omeprazole]) 40 mg PO QDAY [facility] Oxcarbazepine (Trileptal) 150 mg PO BID [facility] Risperidone (Risperdal) 0.25 mg PO BID [facility] Sertraline HCl (Zoloft) 100 mg PO QDAY [facility] Trazodone HCl (Desyrel) 50 mg PO QHS [facility] Last Admin: 09/02/20 22:03 Dose: 50 mg Documented by: Results - Results Labs/Vitals: Laboratory Last Values POC Glucose 229 mg/dL (70-105) H 09/03/20 06:27 Hemoglobin A1c 9.9 % (4-6) H 09/03/20 06:17 Triglycerides 283 mg/dL (2-149) H 09/03/20 06:17 Cholesterol 172 mg/dL (50-199) 09/03/20 06:17 LDL Cholesterol Direct 78 mg/dL (50-130) 09/03/20 06:17 HDL Cholesterol 50 mg/dL (40-59) 09/03/20 06:17 Cholesterol/HDL Ratio 3.44 % 09/03/20 06:17 TSH 8.580 mlU/mL (0.270-4.200) H 09/03/20 06:17 Last Vital Signs Temp 98.4 F 09/02/20 22:00 Pulse 76 09/02/20 22:00 Resp 18 09/02/20 22:00 BP 128/75 09/02/20 22:00 Pulse Ox 97 09/02/20 22:00 Physical Examination - Constitutional Vitals: Vital Signs Temp Pulse Resp BP Pulse Ox 98.4 F 76 18 128/75 97 09/02/20 22:00 09/02/20 22:00 09/02/20 22:00 09/02/20 22:00 09/02/20 22:00 Temperature -Last 24 Hours Temperature 98.4 F Mental Status Exam - Vital signs Last Vital Signs Temp 98.4 F 09/02/20 22:00 Pulse 76 09/02/20 22:00 Resp 18 09/02/20 22:00 BP 128/75 09/02/20 22:00 Pulse Ox 97 09/02/20 22:00 Physician Certification - Certification Statement Physician Certification Statement: This is an acknowledgement statement that ROSE PAUL is a 50 year old F who requires inpatient psychiatric admission for treatment which could reasonably be expected to improve the patient's condition for Estimated period of time patient will need to remain in the hospital: [ ] Plan for post-hospital care: [ ]
[2020-09-03] MEDS: metFORMIN XR 500MG TAB PO SCH (09:53)
[2020-09-03] MEDS: PANTOPRAZOLE 40 MG TAB PO SCH (09:54)
[2020-09-03] MEDS: OXcarbazepine 150 MG TAB PO SCH ×2 (09:54→21:50)
[2020-09-03] MEDS: amLODIPine 10 MG TAB PO SCH (09:54)
[2020-09-03] MEDS: risperiDONE 0.25 MG TAB PO SCH ×2 (09:54→21:50)
[2020-09-03] MEDS: SERTRALINE 100 MG TAB PO SCH (09:54)
[2020-09-03] MEDS: LEVOTHYROXINE 125 MCG TAB PO SCH (09:55)
[2020-09-03] MEDS ORDERED: NON-FORMULARY EACH (Amlodipine Besylate 10 MG) PO SCH (10:00)
[2020-09-03] MEDS ORDERED: NON-FORMULARY EACH (Omeprazole [Omeprazole] 40 MG) PO SCH (10:00)
[2020-09-03] MEDS ORDERED: NON-FORMULARY EACH (Metformin Hcl [Glucophage] 1,000 MG) PO SCH (10:00)
--- NOTE | 2020-09-03 10:44 | Consultation ---
<SHABBIR ZAVALA - Last Filed: 09/03/20 19:59> History of Present Illness - Reason for Consult Consult date: 09/03/20 Medical Management Requesting physician: JENNIFER PIERRE - History of Present Illness This is a 51-year-old female with hypertension, hypertriglyceridemia, acquired hypothyroidism secondary to thyroidectomy in 2004 for Graves' disease, scoliosis, DM, bipolar, GERD, depression, PTSD, anxiety, TBI (2008), substance abuse of marijuana and cocaine, tobacco abuse (half a pack per day for 1 year) and binge alcohol abuse (half a pint every other weekend weekend with 36 beers per weekend) who presented to the ED on 09/01 with depression and suicidal thoughts due to her 's infidelity with SI and HI. Patient denies any cough, fevers, chills, chest pain, hemoptysis, recent weight loss, fatigue, recent exposure to COVID-19 or sick contacts. We have been consulted for medical management while inpatient. Past History Past Medical History: diabetes, hypertension, hypothyroidism (Acquired secondary to thyroidectomy), other (Hypertriglyceridemia) Past Surgical History: cholecystectomy (2006), thyroidectomy (2004) Social history: (In the process of separation), lives with family, smoking (Cocaine, tobacco, marijuana), alcohol abuse, full code Family history: diabetes, hypertension, other (Substance abuse, mental health problems) Medications and Allergies Allergies Allergy/AdvReac Type Severity Reaction Status Date / Time No Known Allergies Allergy Verified 09/01/20 13:31 Home Medications Medication Instructions Recorded Confirmed Last Taken Type Amlodipine Besylate 10 mg PO QDAY 09/01/20 09/02/20 Unknown History AtorvaSTATin [Lipitor] 10 mg PO QHS 09/01/20 09/02/20 Unknown History Levothyroxine Sodium 125 mcg PO QAM 09/01/20 09/02/20 Unknown History Metformin HCl [Glucophage] 1,000 mg PO QDAY 09/01/20 09/02/20 Unknown History OXcarbazepine [Trileptal] 150 mg PO BID 09/01/20 09/02/20 Unknown History Omeprazole 40 mg PO QDAY 09/01/20 09/02/20 Unknown History Sertraline HCl [Zoloft] 100 mg PO QDAY 09/01/20 09/02/20 Unknown History hydrOXYzine PAMOATE [Vistaril] 100 mg PO TID PRN 09/01/20 09/02/20 Unknown History Active Meds: Active Medications Amlodipine Besylate (Amlodipine) 10 mg PO DAILY [facility] Last Admin: 09/03/20 09:54 Dose: 10 mg Documented by: Atorvastatin Calcium (Atorvastatin) 10 mg PO QHS [facility] Hydroxyzine Pamoate (Vistaril) 50 mg PO TID PRN PRN Reason: Anxiety Insulin Human Lispro (Humalog) 0 unit SUB-Q ACHS [facility]; Protocol Last Admin: 09/03/20 08:06 Dose: 3 unit Documented by: Levothyroxine Sodium (Synthroid) 125 mcg PO DAILY@0600 [facility] Last Admin: 09/03/20 09:55 Dose: 125 mcg Documented by: Metformin HCl (Glucophage Xr) 1,000 mg PO QDDIAB [facility] Last Admin: 09/03/20 09:53 Dose: 1,000 mg Documented by: Oxcarbazepine (Trileptal) 150 mg PO BID [facility] Last Admin: 09/03/20 09:54 Dose: 150 mg Documented by: Pantoprazole Sodium (Protonix) 40 mg PO DAILY [facility] Last Admin: 09/03/20 09:54 Dose: 40 mg Documented by: Risperidone (Risperdal) 0.25 mg PO BID [facility] Last Admin: 09/03/20 09:54 Dose: 0.25 mg Documented by: Sertraline HCl (Zoloft) 100 mg PO QDAY [facility] Last Admin: 09/03/20 09:54 Dose: 100 mg Documented by: Trazodone HCl (Desyrel) 50 mg PO QHS [facility] Last Admin: 09/02/20 22:03 Dose: 50 mg Documented by: Review of Systems Constitutional: no weight loss, no weight gain, no fever, no chills, no sweats, no night sweats, no anorexia, no fatigue, no weakness, no malaise Ears, nose, mouth and throat: decreased hearing, no ear pain, no ear discharge, no tinnitis, no nose pain, no nasal congestion, no nasal discharge, no sinus pressure, no sinus pain, no epistaxis, no bleeding gums, no dental pain, no mouth pain, no dysphagia, no hoarseness, no sore throat, no voice changes, no post-nasal drip, no headache, no pain front of neck, no neck fullness/pressure Cardiovascular: high blood pressure, no chest pain, no orthopnea, no palpitations, no rapid/irregular heart beat, no edema, no syncope, no lightheadedness, no shortness of breath, no dyspnea on exertion, no leg edema Respiratory: no cough, no cough with sputum, no excessive sputum, no hemoptysis, no shortness of breath, no dyspnea on exertion, no congestion, no wheezing, no pleurisy Gastrointestinal: diarrhea (X1 today), heartburn, no abdominal pain, no nausea, no vomiting, no constipation, no change in bowel habits, no hematemesis, no coffee ground emesis, no BRBPR, no melena, no hematochezia Genitourinary Female: hot flashes, no pelvic pain, no flank pain, no urinary frequency, no urgency, no stress incontinence, no nocturia, no vaginal itching, no vaginal discharge Menstruation: no periods for 6 months Rectal: no pain, no incontinence, no bleeding Musculoskeletal: arm numbness/tingling, no neck stiffness, no neck pain, no shooting arm pain, no low back pain, no shooting leg pain, no leg numbness/tingling, no redness of joints, no hot joints, no morning stiffness, no muscle weakness, no muscle cramps, no frequent falls, no fractures, no loss of height Integumentary: no rash, no pruritis, no redness, no sores, no wounds, no jaundice, no growths, no bullae, no lesions, no darkening of skin Neurological: no head injury, no transient paralysis, no paralysis, no weakness, no parathesias, no numbness, no tingling, no seizures, no syncope, no tremors, no vertigo, no headaches, no migraines, no convulsions, no confusion, no memory loss, no changes in smell/taste Psychiatric: anxiety, change in appetite, suicidal ideation, depression, hopelessness, anxiety attacks, irritability, sadness/tearfullness, mood swings Endocrine: cold intolerance, polyphagia, excessive thirst, polydipsia, polyuria, high blood sugars, no heat intolerance, no flushing, no weight change, no increase in ring/shoe/hat size Hematologic/Lymphatic: easy bruising, easy bleeding Allergic/Immunologic: urticaria, allergic rhinitis, wheezing Exam - Constitutional Vitals: Temp Pulse Resp BP Pulse Ox 98.7 F 91 H 18 131/69 96 09/03/20 09:30 09/03/20 09:30 09/03/20 09:30 09/03/20 09:30 09/03/20 09:30 General appearance: Present: no acute distress, obese - EENT Eyes: Present: PERRL, EOM intact ENT: hearing intact, clear oral mucosa - Neck Neck: Present: supple, normal ROM - Respiratory Respiratory effort: normal Respiratory: bilateral: CTA - Cardiovascular Rhythm: regular Heart Sounds: Present: S1 & S2. Absent: systolic murmur, diastolic murmur - Extremities Extremities: no ischemia, pulses intact, pulses symmetrical, No edema, normal temperature, normal color, Full ROM Peripheral Pulses: within normal limits - Abdominal General gastrointestinal: Present: soft, non-tender, non-distended, normal bowel sounds - Integumentary Integumentary: Present: clear, warm, dry - Musculoskeletal Musculoskeletal: strength equal bilaterally - Psychiatric Psychiatric: appropriate mood/affect, cooperative - Neurologic Neurologic: CNII-XII intact, no focal deficits, moves all extremities - Allied Health Allied health notes reviewed: nursing Results - Labs Labs: Abnormal lab results 09/02/20 09/03/20 09/03/20 Range/Units 20:58 06:17 06:17 POC Glucose 269 H (70-105) mg/dL Hemoglobin A1c 9.9 H (4-6) % Triglycerides 283 H (2-149) mg/dL TSH (0.270-4.200) mlU/mL 09/03/20 09/03/20 Range/Units 06:17 06:27 POC Glucose 229 H (70-105) mg/dL Hemoglobin A1c (4-6) % Triglycerides (2-149) mg/dL TSH 8.580 H (0.270-4.200) mlU/mL Assessment and Plan - Patient Problems (1) Bipolar 1 disorder Current Visit: Yes Status: Acute Plan to address problem: Bipolar Disorder, Current Episode Depressed with Psychotic Features Per primary (2) Major depressive disorder Current Visit: No Status: Chronic Qualifiers: Major depression recurrence: recurrent Active/Remission status: currently active Major depression episode severity: severe Psychotic features: with psychotic features Qualified Code(s): F33.3 - Major depressive disorder, recurrent, severe with psychotic symptoms Plan to address problem: Per primary (3) Diabetes mellitus Current Visit: Yes Status: Chronic Qualifiers: Diabetes mellitus type: type 2 Diabetes mellitus complication status: with neurologic complications Diabetes mellitus complication detail: with polyneuropathy Plan to address problem: Hemoglobin A1c 9.9 Restarted home antidiabetic regimen, titrate as needed (Metformin titrated to twice daily from daily) SSI in addition to p.o. antidiabetics Accu-Cheks AC at bedtime Follow-up with PCP outpatient CC cardiac diet (4) Hypertension Current Visit: Yes Status: Acute Plan to address problem: Restarted on home antihypertensive, titrate as needed Blood pressure monitoring per protocol Follow-up with primary care physician upon discharge (5) Hypertriglyceridemia Current Visit: Yes Status: Chronic Plan to address problem: Restarted home statin therapy and titrated 09/03 lipid panel: Triglycerides 283, cholesterol 172, LDL 78, HDL 50 Encourage dietary modifications and increasing physical activity Follow-up with PCP upon discharge (6) Hypothyroidism Current Visit: Yes Status: Chronic Qualifiers: Hypothyroidism type: postoperative Qualified Code(s): E89.0 - Postprocedural hypothyroidism Plan to address problem: 09/03 TSH 8.5 Restarted home Synthroid Follow-up with PCP upon discharge (7) Medical non-compliance Current Visit: Yes Status: Acute Plan to address problem: Encourage medical compliance Follow-up with PCP upon discharge (8) GERD (gastroesophageal reflux disease) Current Visit: Yes Status: Chronic Plan to address problem: Restarted home Protonix (9) Mildly obese Current Visit: Yes Status: Chronic Plan to address problem: BMI 30.2 Encourage weight loss with physical activity and diet modification Consider outpatient bariatric surgery if needed (10) DVT prophylaxis Current Visit: Yes Status: Acute Plan to address problem: SCDs to bilateral extremities while in bed Patient is ambulatory <MISBAH HIDALGO R - Last Filed: 09/04/20 09:47> Medications and Allergies Active Meds: Active Medications Amlodipine Besylate (Amlodipine) 10 mg PO DAILY [facility] Last Admin: 09/04/20 09:20 Dose: 10 mg Documented by: Atorvastatin Calcium (Lipitor) 40 mg PO QHS [facility] Last Admin: 09/03/20 21:50 Dose: 40 mg Documented by: Hydroxyzine Pamoate (Vistaril) 50 mg PO TID PRN PRN Reason: Anxiety Insulin Human Lispro (Humalog) 0 unit SUB-Q ACHS [facility]; Protocol Last Admin: 09/04/20 08:09 Dose: 4 unit Documented by: Levothyroxine Sodium (Synthroid) 125 mcg PO DAILY@0600 [facility] Last Admin: 09/04/20 06:36 Dose: 125 mcg Documented by: Metformin HCl (Glucophage Xr) 1,000 mg PO QDDIAB [facility] Last Admin: 09/04/20 08:09 Dose: 1,000 mg Documented by: Oxcarbazepine (Trileptal) 150 mg PO BID [facility] Last Admin: 09/04/20 09:20 Dose: 150 mg Documented by: Pantoprazole Sodium (Protonix) 40 mg PO DAILY [facility] Last Admin: 09/04/20 09:21 Dose: 40 mg Documented by: Risperidone (Risperdal) 0.25 mg PO BID [facility] Last Admin: 09/04/20 09:20 Dose: 0.25 mg Documented by: Sertraline HCl (Zoloft) 100 mg PO QDAY [facility] Last Admin: 09/04/20 09:21 Dose: 100 mg Documented by: Trazodone HCl (Desyrel) 50 mg PO QHS [facility] Last Admin: 09/03/20 21:50 Dose: 50 mg Documented by: Exam - Constitutional Vitals: Temp Pulse Resp BP Pulse Ox 97.6 F 74 18 125/79 95 09/04/20 08:31 09/04/20 08:31 09/04/20 08:31 09/04/20 08:31 09/04/20 08:31 Results - Labs Labs: Abnormal lab results 09/03/20 09/03/20 09/03/20 Range/Units 11:48 16:25 20:01 POC Glucose 228 H 208 H 340 H (70-105) mg/dL 09/04/20 Range/Units 06:09 POC Glucose 258 H (70-105) mg/dL Assessment and Plan I saw and evaluated the patient. I agree with the findings and the plan of care as documented in the Nurse Practitioner's~note,
[2020-09-03] MEDS: traZODone 50 MG TAB PO SCH (21:50)
[2020-09-04] MEDS: LEVOTHYROXINE 125 MCG TAB PO SCH (06:36)
[2020-09-04] MEDS: INSULIN LISPRO 100 UNIT/ML VIAL 3 mL SUB-Q SCH ×4 (08:09→22:12)
[2020-09-04] MEDS: metFORMIN XR 500MG TAB PO SCH (08:09)
[2020-09-04] MEDS: amLODIPine 10 MG TAB PO SCH (09:20)
[2020-09-04] MEDS: OXcarbazepine 150 MG TAB PO SCH ×2 (09:20→21:23)
[2020-09-04] MEDS: risperiDONE 0.25 MG TAB PO SCH ×2 (09:20→21:23)
[2020-09-04] MEDS: SERTRALINE 100 MG TAB PO SCH (09:21)
[2020-09-04] MEDS: PANTOPRAZOLE 40 MG TAB PO SCH (09:21)
[2020-09-04] MEDS: metFORMIN 500 MG TAB PO SCH (16:54)
--- NOTE | 2020-09-04 20:42 | Progress Note ---
Assessment and Plan - Patient Problems (1) HLD (hyperlipidemia) Current Visit: Yes Status: Acute Qualifiers: Hyperlipidemia type: mixed hyperlipidemia Qualified Code(s): E78.2 - Mixed hyperlipidemia Plan to address problem: Statin therapy, low-cholesterol diet, supportive care (2) Hypothyroidism (acquired) Current Visit: Yes Status: Acute Plan to address problem: Synthroid therapy, supportive care. (3) Diabetes mellitus Current Visit: Yes Status: Chronic Qualifiers: Diabetes mellitus type: type 2 Diabetes mellitus complication status: with neurologic complications Diabetes mellitus complication detail: with polyneuropathy Plan to address problem: Insulin protocol, increase Metformin to 1 g twice daily AC, consistent carbohydrate diet. (4) GERD (gastroesophageal reflux disease) Current Visit: Yes Status: Chronic Qualifiers: Esophagitis presence: without esophagitis Qualified Code(s): K21.9 - Gastro-esophageal reflux disease without esophagitis Plan to address problem: PPI therapy, bland diet. History Interval history: 51 YO Female with HTN, HLD, Hypothyroidism, DM, GERD, PTSD admitted to [facility] for Psychiatric stabilization. Patient resting comfortably in bed. Patient denies any complaints. Nursing staff reported elevated blood glucose levels. Hospitalist Physical - Constitutional Vitals: Temp Pulse Resp BP Pulse Ox 97.6 F 74 18 125/79 95 09/04/20 08:31 09/04/20 08:31 09/04/20 08:31 09/04/20 08:31 09/04/20 08:31 General appearance: Present: no acute distress, obese - EENT Eyes: Present: PERRL, EOM intact ENT: hearing intact - Respiratory Respiratory effort: normal Respiratory: bilateral: CTA - Cardiovascular Rhythm: regular Heart Sounds: Present: S1 & S2 - Extremities Extremities: no ischemia, No edema Peripheral Pulses: within normal limits - Abdominal General gastrointestinal: soft, non-tender, non-distended - Integumentary Integumentary: Present: clear, dry - Psychiatric Psychiatric: cooperative - Neurologic Neurologic: CNII-XII intact Results - Labs Labs: Laboratory Last Values POC Glucose 297 mg/dL (70-105) H 09/04/20 20:14 Hemoglobin A1c 9.9 % (4-6) H 09/03/20 06:17 Triglycerides 283 mg/dL (2-149) H 09/03/20 06:17 Cholesterol 172 mg/dL (50-199) 09/03/20 06:17 LDL Cholesterol Direct 78 mg/dL (50-130) 09/03/20 06:17 HDL Cholesterol 50 mg/dL (40-59) 09/03/20 06:17 Cholesterol/HDL Ratio 3.44 % 09/03/20 06:17 TSH 8.580 mlU/mL (0.270-4.200) H 09/03/20 06:17 Gonzales/IV: Voiding Method Toilet Active Medications - Current Medications Current Medications: Generic Name Dose Route Start Last Admin Trade Name Freq PRN Reason Stop Dose Admin Amlodipine Besylate 10 mg 09/03/20 10:00 09/04/20 09:20 Amlodipine PO 10 mg DAILY [facility] Administration Atorvastatin Calcium 40 mg 09/03/20 22:00 09/03/20 21:50 Lipitor PO 40 mg QHS [facility] Administration Hydroxyzine Pamoate 50 mg 09/03/20 08:15 Vistaril PO TID PRN Anxiety Insulin Human Lispro 0 unit 09/02/20 22:00 09/04/20 16:53 Humalog SUB-Q 4 unit ACHS [facility] Administration Protocol Levothyroxine Sodium 125 mcg 09/03/20 10:00 09/04/20 06:36 Synthroid PO 125 mcg DAILY@0600 [facility] Administration Metformin HCl 1,000 mg 09/04/20 17:00 09/04/20 16:54 Glucophage PO 1,000 mg BIDDIAB [facility] Administration Oxcarbazepine 150 mg 09/03/20 10:00 09/04/20 09:20 Trileptal PO 150 mg BID [facility] Administration Pantoprazole Sodium 40 mg 09/03/20 10:00 09/04/20 09:21 Protonix PO 40 mg DAILY [facility] Administration Risperidone 0.25 mg 09/03/20 10:00 09/04/20 09:20 Risperdal PO 0.25 mg BID [facility] Administration Sertraline HCl 100 mg 09/03/20 10:00 09/04/20 09:21 Zoloft PO 100 mg QDAY [facility] Administration Trazodone HCl 50 mg 09/02/20 22:00 09/03/20 21:50 Desyrel PO 50 mg QHS [facility] Administration
[2020-09-04] MEDS: traZODone 50 MG TAB PO SCH (21:23)
[2020-09-05] MEDS: LEVOTHYROXINE 125 MCG TAB PO SCH (05:44)
--- NOTE | 2020-09-05 07:59 | Progress Note ---
Subjective Date of service: 09/05/20 Principal diagnosis: MDD Subjective Comment: During my interview with the patient today, she is lying down asleep. She easily arouses. She is oriented x 3. The patient says she "feels better." She says she slept good. The patient denies any thoughts or feelings of hurting herself or anyone else. The patient discussed feeling optimistic. She says she's "ready to go back to work." She denies hallucinations of any kind. Reason for continued inpatient treatment: The patient has improved significantly. Will treat an extra day to make sure that patient is receiving maximum benefits and continues to progress from treatment. Social support will also need to be assessed and included in plan in order to ensue a safe discharge. REVIEW OF SYSTEMS Constitutional: Negative for weight loss ENT: Negative for stridor Respiratory: Negative for cough or hemoptysis All other systems reviewed and are negative MENTAL STATUS EXAMINATION General Appearance and Behavior: Age appropriate, good hygiene, not wearing appropriate clothes, good eye contact, cooperative polite with questioning. Cooperation: Participating/engaged Psychomotor Behavior: Psychomotor normal Mood: "depressed" Affect and affective range: Tearful Thought Process: goal directed Thought Content: None Speech: Normal tone and pace Suicidal Ideation: Yes Homicidal Ideation: Yes Hallucinations: Visual yesterday, but denies yesterday Delusions: None elicited Impulse Control: Impaired Insight and Judgment: Limited insight and judgment Memory: Normal Attention: limited Orientation: Alert, oriented, Assessment and Plan Bipolar Disorder, Current Episode Depressed with Psychotic Features Cocaine Use Disorder Noncompliance with other medical treatment and regimen Treatment Plan Patient admitted for inpatient psychiatric evaluation, medication adjustment and close monitoring The patient's behavior, mood, sleep and appetite will be closely monitored. Patient enrolled in individual and group therapeutic sessions and encouraged to attend. Patient provided with a safe and structured environment. Patient's physical health needs will be addressed by the Hospitalist. Hospitalist Consulted Labs including CBC, CMP, Lipid profile and Hemoglobin A1C levels ordered for baseline reference Social Assessment will be completed and the Melt Room Operator will work with patient and family to ensure a suitable and safe disposition Medication adjustment will be made as clinically indicated No changes to regimen today Usual Wellness Congregational/Preservation: - Start Trazodone 50 mg po QHS - Start Melatonin 5 mg po QHS to promote circadian rhythm - Start [place]-3 for brain health, reduce impulsivity, and as adjunctive treatment for mood disorder, continue upon discharge given overall benefits. - Start B1 prophylaxis with 200 mg po for 5 days The patient agreed on the treatment plan, understood the risk, benefit, alternative treatment, potential consequence of no treatment, and gave informed consent. Estimated days: 3 Post hospital care: primary care provider, psychiatric provider Medications and Allergies Allergies Allergy/AdvReac Type Severity Reaction Status Date / Time No Known Allergies Allergy Verified 09/01/20 13:31 Home Medications Medication Instructions Recorded Confirmed Last Taken Type Amlodipine Besylate 10 mg PO QDAY 09/01/20 09/02/20 Unknown History AtorvaSTATin [Lipitor] 10 mg PO QHS 09/01/20 09/02/20 Unknown History Levothyroxine Sodium 125 mcg PO QAM 09/01/20 09/02/20 Unknown History Metformin HCl [Glucophage] 1,000 mg PO QDAY 09/01/20 09/02/20 Unknown History OXcarbazepine [Trileptal] 150 mg PO BID 09/01/20 09/02/20 Unknown History Omeprazole 40 mg PO QDAY 09/01/20 09/02/20 Unknown History Sertraline HCl [Zoloft] 100 mg PO QDAY 09/01/20 09/02/20 Unknown History hydrOXYzine PAMOATE [Vistaril] 100 mg PO TID PRN 09/01/20 09/02/20 Unknown History Active Meds: Active Medications Amlodipine Besylate (Amlodipine) 10 mg PO DAILY [facility] Last Admin: 09/04/20 09:20 Dose: 10 mg Documented by: Atorvastatin Calcium (Lipitor) 40 mg PO QHS [facility] Last Admin: 09/04/20 21:23 Dose: 40 mg Documented by: Hydroxyzine Pamoate (Vistaril) 50 mg PO TID PRN PRN Reason: Anxiety Insulin Human Lispro (Humalog) 0 unit SUB-Q [facility]; Protocol Last Admin: 09/04/20 22:12 Dose: 6 unit Documented by: Levothyroxine Sodium (Synthroid) 125 mcg PO DAILY@0600 [facility] Last Admin: 09/05/20 05:44 Dose: 125 mcg Documented by: Metformin HCl (Glucophage) 1,000 mg PO BIDDIAB [facility] Last Admin: 09/04/20 16:54 Dose: 1,000 mg Documented by: Oxcarbazepine (Trileptal) 150 mg PO BID [facility] Last Admin: 09/04/20 21:23 Dose: 150 mg Documented by: Pantoprazole Sodium (Protonix) 40 mg PO DAILY [facility] Last Admin: 09/04/20 09:21 Dose: 40 mg Documented by: Risperidone (Risperdal) 0.25 mg PO BID [facility] Last Admin: 09/04/20 21:23 Dose: 0.25 mg Documented by: Sertraline HCl (Zoloft) 100 mg PO QDAY [facility] Last Admin: 09/04/20 09:21 Dose: 100 mg Documented by: Trazodone HCl (Desyrel) 50 mg PO QHS [facility] Last Admin: 09/04/20 21:23 Dose: 50 mg Documented by: Results - Results Labs/Vitals: Laboratory Last Values POC Glucose 253 mg/dL (70-105) H 09/05/20 07:55 Hemoglobin A1c 9.9 % (4-6) H 09/03/20 06:17 Triglycerides 283 mg/dL (2-149) H 09/03/20 06:17 Cholesterol 172 mg/dL (50-199) 09/03/20 06:17 LDL Cholesterol Direct 78 mg/dL (50-130) 09/03/20 06:17 HDL Cholesterol 50 mg/dL (40-59) 09/03/20 06:17 Cholesterol/HDL Ratio 3.44 % 09/03/20 06:17 TSH 8.580 mlU/mL (0.270-4.200) H 09/03/20 06:17 Last Vital Signs Temp 97.7 F 09/04/20 22:00 Pulse 91 H 09/04/20 22:00 Resp 16 09/04/20 22:00 BP 113/69 09/04/20 22:00 Pulse Ox 95 09/04/20 22:00
[2020-09-05] MEDS: PANTOPRAZOLE 40 MG TAB PO SCH (09:30)
[2020-09-05] MEDS: amLODIPine 10 MG TAB PO SCH (09:30)
[2020-09-05] MEDS: SERTRALINE 100 MG TAB PO SCH (09:30)
[2020-09-05] MEDS: metFORMIN 500 MG TAB PO SCH ×2 (09:31→16:10)
[2020-09-05] MEDS: INSULIN LISPRO 100 UNIT/ML VIAL 3 mL SUB-Q SCH ×4 (09:32→21:44)
[2020-09-05] MEDS: risperiDONE 0.25 MG TAB PO SCH ×2 (09:32→21:25)
[2020-09-05] MEDS: OXcarbazepine 150 MG TAB PO SCH ×2 (09:44→21:25)
[2020-09-05] MEDS: traZODone 50 MG TAB PO SCH (21:25)
[2020-09-06] MEDS: LEVOTHYROXINE 125 MCG TAB PO SCH (07:37)
[2020-09-06] MEDS: metFORMIN 500 MG TAB PO SCH ×2 (08:02→16:51)
--- NOTE | 2020-09-06 08:15 | Progress Note ---
Subjective Date of service: 09/06/20 Principal diagnosis: MDD Subjective Comment: During my interview with the patient today, she is sitting in the dayroom. The patient expresses optimism about her future. She says she's ready to discharge so she can figure things out. The patient denies SI/HI or any feelings of endangerment. She says she had a bad night last night and states one of the staff members hurt her feelings. The patient is asking about going home today. Advised her that she would be monitored another night to make sure she is getting the maximum benefit from her treatment. Reason for continued inpatient treatment: The patient has improved significant ly. Will treat an extra day to make sure that patient is receiving maximum benefits and continues to progress from treatment. Social support will also need to be assessed and included in plan in order to ensue a safe discharge. REVIEW OF SYSTEMS Constitutional: Negative for weight loss ENT: Negative for stridor Respiratory: Negative for cough or hemoptysis All other systems reviewed and are negative MENTAL STATUS EXAMINATION General Appearance and Behavior: Age appropriate, good hygiene, not wearing appropriate clothes, good eye contact, cooperative polite with questioning. Cooperation: Participating/engaged Psychomotor Behavior: Psychomotor normal Mood: "depressed" Affect and affective range: Tearful Thought Process: goal directed Thought Content: None Speech: Normal tone and pace Suicidal Ideation: Yes Homicidal Ideation: Yes Hallucinations: Visual yesterday, but denies yesterday Delusions: None elicited Impulse Control: Impaired Insight and Judgment: Limited insight and judgment Memory: Normal Attention: limited Orientation: Alert, oriented, Assessment and Plan Bipolar Disorder, Current Episode Depressed with Psychotic Features Cocaine Use Disorder Noncompliance with other medical treatment and regimen Treatment Plan Patient admitted for inpatient psychiatric evaluation, medication adjustment and close monitoring The patient's behavior, mood, sleep and appetite will be closely monitored. Patient enrolled in individual and group therapeutic sessions and encouraged to attend. Patient provided with a safe and structured environment. Patient's physical health needs will be addressed by the Hospitalist. Hospitalist Consulted Labs including CBC, CMP, Lipid profile and Hemoglobin A1C levels ordered for baseline reference Social Assessment will be completed and the [employer] St[employer] Repairer will work with patient and family to ensure a suitable and safe disposition Medication adjustment will be made as clinically indicated No changes to regimen today Usual Wellness Voodoo/Preservation: - Start Trazodone 50 mg po QHS - Start Melatonin 5 mg po QHS to promote circadian rhythm - Start [place]-3 for brain health, reduce impulsivity, and as adjunctive treatment for mood disorder, continue upon discharge given overall benefits. - Start B1 prophylaxis with 200 mg po for 5 days The patient agreed on the treatment plan, understood the risk, benefit, alternative treatment, potential consequence of no treatment, and gave informed consent. Estimated days: 2 Post hospital care: primary care provider, psychiatric provider Medications and Allergies Allergies Allergy/AdvReac Type Severity Reaction Status Date / Time No Known Allergies Allergy Verified 09/01/20 13:31 Home Medications Medication Instructions Recorded Confirmed Last Taken Type Amlodipine Besylate 10 mg PO QDAY 09/01/20 09/02/20 Unknown History AtorvaSTATin [Lipitor] 10 mg PO QHS 09/01/20 09/02/20 Unknown History Levothyroxine Sodium 125 mcg PO QAM 09/01/20 09/02/20 Unknown History Metformin HCl [Glucophage] 1,000 mg PO QDAY 09/01/20 09/02/20 Unknown History OXcarbazepine [Trileptal] 150 mg PO BID 09/01/20 09/02/20 Unknown History Omeprazole 40 mg PO QDAY 09/01/20 09/02/20 Unknown History Sertraline HCl [Zoloft] 100 mg PO QDAY 09/01/20 09/02/20 Unknown History hydrOXYzine PAMOATE [Vistaril] 100 mg PO TID PRN 09/01/20 09/02/20 Unknown H istory Active Meds: Active Medications Amlodipine Besylate (Amlodipine) 10 mg PO DAILY [facility] Last Admin: 09/05/20 09:30 Dose: 10 mg Documented by: Atorvastatin Calcium (Lipitor) 40 mg PO QHS [facility] Last Admin: 09/05/20 21:25 Dose: 40 mg Documented by: Hydroxyzine Pamoate (Vistaril) 50 mg PO TID PRN PRN Reason: Anxiety Last Admin: 09/05/20 21:39 Dose: 50 mg Documented by: Insulin Human Lispro (Humalog) 0 unit SUB-Q [facility]; Protocol Last Admin: 09/05/20 21:44 Dose: 3 unit Documented by: Levothyroxine Sodium (Synthroid) 125 mcg PO DAILY@0600 [facility] Last Admin: 09/06/20 07:37 Dose: 125 mcg Documented by: Metformin HCl (Glucophage) 1,000 mg PO BIDDIAB [facility] Last Admin: 09/06/20 08:02 Dose: 1,000 mg Documented by: Oxcarbazepine (Trileptal) 150 mg PO BID [facility] Last Admin: 09/05/20 21:25 Dose: 150 mg Documented by: Pantoprazole Sodium (Protonix) 40 mg PO DAILY [facility] Last Admin: 09/05/20 09:30 Dose: 40 mg Documented by: Risperidone (Risperdal) 0.25 mg PO BID [facility] Last Admin: 09/05/20 21:25 Dose: 0.25 mg Documented by: Sertraline HCl (Zoloft) 100 mg PO QDAY [facility] Last Admin: 09/05/20 09:30 Dose: 100 mg Documented by: Trazodone HCl (Desyrel) 50 mg PO QHS [facility] Last Admin: 09/05/20 21:25 Dose: 50 mg Documented by: Results - Results Labs/Vitals: Laboratory Last Values POC Glucose 202 mg/dL (70-105) H 09/06/20 06:24 Hemoglobin A1c 9.9 % (4-6) H 09/03/20 06:17 Triglycerides 283 mg/dL (2-149) H 09/03/20 06:17 Cholesterol 172 mg/dL (50-199) 09/03/20 06:17 LDL Cholesterol Direct 78 mg/dL (50-130) 09/03/20 06:17 HDL Cholesterol 50 mg/dL (40-59) 09/03/20 06:17 Cholesterol/HDL Ratio 3.44 % 09/03/20 06:17 TSH 8.580 mlU/mL (0.270-4.200) H 09/03/20 06:17 Last Vital Signs Temp 98.1 F 09/05/20 22:00 Pulse 78 09/05/20 22:00 Resp 18 09/05/20 22:00 BP 152/82 09/05/20 22:00 Pulse Ox 99 09/05/20 22:00
[2020-09-06] MEDS: amLODIPine 10 MG TAB PO SCH (09:04)
[2020-09-06] MEDS: PANTOPRAZOLE 40 MG TAB PO SCH (09:05)
[2020-09-06] MEDS: risperiDONE 0.25 MG TAB PO SCH ×2 (09:05→21:20)
[2020-09-06] MEDS: OXcarbazepine 150 MG TAB PO SCH ×2 (09:05→21:20)
[2020-09-06] MEDS: SERTRALINE 100 MG TAB PO SCH (09:06)
[2020-09-06] MEDS: INSULIN LISPRO 100 UNIT/ML VIAL 3 mL SUB-Q SCH ×4 (10:26→23:42)
[2020-09-06] MEDS: traZODone 50 MG TAB PO SCH (21:19)
[2020-09-07] MEDS: LEVOTHYROXINE 125 MCG TAB PO SCH (07:04)
[2020-09-07] MEDS ORDERED: PANTOPRAZOLE 40 MG TAB PO SCH (07:30)
--- NOTE | 2020-09-07 07:35 | Progress Note ---
Subjective Date of service: 09/07/20 Principal diagnosis: MDD Subjective Comment: Psych Nurse: Patient interacted appropriately with her peers today. She was medication compliant. Patient denies si/hi/ah/vh. This evening the patient continued to interact well. She is relaxed and looking forward to going home. Patient is medication compliant. Will continue to monitor patient for safety. Psych Progress HPI In my interview with the patient this morning, Patient describes a good and stable mood, denies being depressed or excessively nervous. Patient eats and sleeps well. Patient denies panic attacks, recurrent nightmares or flashbacks. Patient denies symptoms suggestive of OCD or PTSD. Patient denies hallucinations, paranoia, thought interference and no features suggestive of hypomania or ebonie. She completely denies suicidal or homicidal thoughts. Reason for continuing inpatient treatment: Plan for safety discharge today. Review of Symptoms: Constitutional: Negative for weight loss ENT: Negative for stridor Respiratory: Negative for cough or hemoptysis All other systems reviewed and are negative MENTAL STATUS EXAMINATION General Appearance and Behavior: Age appropriate, good hygiene, wearing appropriate clothes, good eye contact, cooperative polite with questioning. Cooperation: Participating/engaged Psychomotor Behavior: unremarkable and within normal limits Mood: Good Affect and affective range: congruent with mood Thought Process: Fluent/Logical, Thought Content: Within reality, Speech: Normal volume, Regular rate and rhythm, Intellectual Functioning: Average Suicidal Ideation: Denies SI Homicidal Ideation: Denies HI Impulse Control: Unimpaired Insight and Judgment: Normal insight and judgment, Memory: Normal, Attention: Normal, Orientation: Alert, oriented, Treatment Plan Discharge today Patient admitted for inpatient psychiatric evaluation, medication adjustment and close monitoring The patient's behavior, mood, sleep and appetite will be closely monitored. Patient enrolled in individual and group therapeutic sessions and encouraged to attend. Patient provided with a safe and structured environment. Patient's physical health needs will be addressed by the Hospitalist. Hospitalist Consulted Labs including CBC, CMP, Lipid profile and Hemoglobin A1C levels ordered for baseline reference Social Assessment will be completed and the [facility] will work with patient and family to ensure a suitable and safe disposition Medication adjustment will be made as clinically indicated Usual Wellness Anabaptist/Preservation: - Start Trazodone 50 mg po QHS & 50 mg po QHS PRN between 10 PM & 2 AM for insomnia - Start Melatonin 5 mg po QHS to promote circadian rhythm - Start [place]-3 for brain health, reduce impulsivity, and as adjunctive treatment for mood disorder, continue upon discharge given overall benefits. - Start B1 prophylaxis with 200 mg po for 5 days The patient agreed on the treatment plan, understood the risk, benefit, alternative treatment, potential consequence of no treatment, and gave informed consent. Initial Certification Inpatient psych services: I certify that the inpatient psychiatric services are required for treatment that could reasonably be expected to improve the patient's condition. Estimated days: 0 Post hospital care: primary care provider, psychiatric provider Medications and Allergies Allergies Allergy/AdvReac Type Severity Reaction Status Date / Time No Known Allergies Allergy Verified 09/01/20 13:31 Home Medications Medication Instructions Recorded Confirmed Last Taken Type Amlodipine Besylate 10 mg PO QDAY 09/01/20 09/02/20 Unknown History AtorvaSTATin [Lipitor] 10 mg PO QHS 09/01/20 09/02/20 Unknown History Levothyroxine Sodium 125 mcg PO QAM 09/01/20 09/02/20 Unknown History Metformin HCl [Glucophage] 1,000 mg PO QDAY 09/01/20 09/02/20 Unknown History OXcarbazepine [Trileptal] 150 mg PO BID 09/01/20 09/02/20 Unknown History Omeprazole 40 mg PO QDAY 09/01/20 09/02/20 Unknown History Sertraline HCl [Zoloft] 100 mg PO QDAY 09/01/20 09/02/20 Unknown History hydrOXYzine PAMOATE [Vistaril] 100 mg PO TID PRN 09/01/20 09/02/20 Unknown History Active Meds: Active Medications Amlodipine Besylate (Amlodipine) 10 mg PO DAILY [facility] Last Admin: 09/06/20 09:04 Dose: 10 mg Documented by: Atorvastatin Calcium (Lipitor) 40 mg PO QHS [facility] Last Admin: 09/06/20 21:20 Dose: 40 mg Documented by: Hydroxyzine Pamoate (Vistaril) 50 mg PO TID PRN PRN Reason: Anxiety Last Admin: 09/07/20 00:39 Dose: 50 mg Documented by: Insulin Human Lispro (Humalog) 0 unit SUB-Q [facility]; Protocol Last Admin: 09/06/20 23:42 Dose: Not Given Documented by: Levothyroxine Sodium (Synthroid) 125 mcg PO DAILY@0600 [facility] Last Admin: 09/07/20 07:04 Dose: 125 mcg Documented by: Metformin HCl (Glucophage) 1,000 mg PO BIDDIAB [facility] Last Admin: 09/06/20 16:51 Dose: 1,000 mg Documented by: Oxcarbazepine (Trileptal) 150 mg PO BID [facility] Last Admin: 09/06/20 21:20 Dose: 150 mg Documented by: Pantoprazole Sodium (Pantoprazole 40 Mg Tab) 40 mg PO QDAC [facility] Risperidone (Risperdal) 0.25 mg PO BID [facility] Last Admin: 09/06/20 21:20 Dose: 0.25 mg Documented by: Sertraline HCl (Zoloft) 100 mg PO QDAY [facility] Last Admin: 09/06/20 09:06 Dose: 100 mg Documented by: Trazodone HCl (Desyrel) 50 mg PO QHS [facility] Last Admin: 09/06/20 21:19 Dose: 50 mg Documented by: Results - Results Labs/Vitals: Laboratory Last Values POC Glucose 188 mg/dL (70-105) H 09/06/20 16:02 Hemoglobin A1c 9.9 % (4-6) H 09/03/20 06:17 Triglycerides 283 mg/dL (2-149) H 09/03/20 06:17 Cholesterol 172 mg/dL (50-199) 09/03/20 06:17 LDL Cholesterol Direct 78 mg/dL (50-130) 09/03/20 06:17 HDL Cholesterol 50 mg/dL (40-59) 09/03/20 06:17 Cholesterol/HDL Ratio 3.44 % 09/03/20 06:17 TSH 8.580 mlU/mL (0.270-4.200) H 09/03/20 06:17 Last Vital Signs Temp 97.7 F 09/06/20 21:12 Pulse 79 09/06/20 21:12 Resp 16 09/06/20 21:12 BP 121/66 09/06/20 21:12 Pulse Ox 98 09/06/20 21:12
[2020-09-07] MEDS: OXcarbazepine 150 MG TAB PO SCH (09:53)
[2020-09-07] MEDS: SERTRALINE 100 MG TAB PO SCH (09:53)
[2020-09-07] MEDS: risperiDONE 0.25 MG TAB PO SCH (09:53)
[2020-09-07] MEDS: metFORMIN 500 MG TAB PO SCH (09:53)
[2020-09-07] MEDS: amLODIPine 10 MG TAB PO SCH (09:55)
[2020-09-07 10:16] VITALS: BP 130/70
[2020-09-07] MEDS: INSULIN LISPRO 100 UNIT/ML VIAL 3 mL SUB-Q SCH ×2 (10:18→13:07)
--- NOTE | 2020-09-07 12:38 | Discharge Summary ---
Providers - Providers Date of Admission: 09/03/20 00:37 Date of discharge: 09/07/20 Attending physician: JENNIFER PIERRE MD 09/02/20 15:15 Consult to Physician [CONS] Routine Comment: Consulting Provider: MARY LOCKHART Physician Instructions: Reason For Exam: manage medical conditions Primary care physician: DATA ENTRY ASSISTANT Hospitalization Reason for admission: Danger to self Condition: Good Hospital course: The patient was provided inpatient psychiatric treatment with safe and supportive environment, group/individual therapy, psychiatric medication, medication adjustment, adverse effect monitor, medical evaluation, medical treatment, social service assessment, social support meeting, placement ass essment and psycho-education. The patients mood, cognition, behavior, motivation, compliance to treatment and appreciation on family/social support are improved and stabilized. At the time of discharge, the patient had no suicidal ideas, no homicidal ideas, no aggressive thoughts, no endangering behavior and no debilitating adverse effects. The patient agareed on the treatment plan, understood the risk, benefit, alternative treatment, potential consequence of no treatment, and gave informed consent. Disposition: DC-01 TO HOME OR SELFCARE Allergies/Adverse Reactions: Allergies No Known Allergies Allergy (Verified 09/01/20 13:31) Vital Signs: Last Vital Signs Temp 97.7 F 09/06/20 21:12 Pulse 80 09/07/20 09:55 Resp 16 09/06/20 21:12 BP 130/70 09/07/20 09:55 Pulse Ox 98 09/06/20 21:12 Last Lab: Laboratory Last Values POC Glucose 200 mg/dL (70-105) H 09/07/20 12:18 Hemoglobin A1c 9.9 % (4-6) H 09/03/20 06:17 Triglycerides 283 mg/dL (2-149) H 09/03/20 06:17 Cholesterol 172 mg/dL (50-199) 09/03/20 06:17 LDL Cholesterol Direct 78 mg/dL (50-130) 09/03/20 06:17 HDL Cholesterol 50 mg/dL (40-59) 09/03/20 06:17 Cholesterol/HDL Ratio 3.44 % 09/03/20 06:17 TSH 8.580 mlU/mL (0.270-4.200) H 09/03/20 06:17 Core Measure Documentation - Palliative Care Palliative Care/ Comfort Measures: Not Applicable - Core Measures Any of the following diagnoses?: none Exam - Constitutional Vitals: Temp Pulse Resp BP Pulse Ox 97.7 F 80 16 130/70 98 09/06/20 21:12 09/07/20 09:55 09/06/20 21:12 09/07/20 09:55 09/06/20 21:12 General appearance: Present: no acute distress - EENT Eyes: Present: PERRL, EOM intact ENT: hearing intact, clear oral mucosa - Neck Neck: Present: supple, normal ROM - Respiratory Respiratory effort: normal - Abdominal Female genitourinary: Present: deferred - Rectal Rectal Exam: deferred - Integumentary Integumentary: Present: clear, warm, dry Plan Activity: no restrictions Care Plan Goals: Goals: Maintain good and stable mental health. Plan of Treatment: The patient should be compliant with medications, not to use drugs and not to drink alcohol. The patient understands that if suicidal ideas, homicidal ideas, or any endangering thoughts arise, the patient should immediately seek for emergent assistance including but not limited to crisis hot line and emergency room. Follow up with outpatient Psychiatrist and PCP within 7 - 14 days of discharge. Follow up with: PRIMARY CARE, [Primary Care Provider] - 7 Days Prescriptions: traZODone [Desyrel] 50 mg PO QHS 30 Days #30 tablet risperiDONE [RisperDAL] 0.5 mg PO BID 30 Days #60 tablet OXcarbazepine [Trileptal] 150 mg PO BID 30 Days #60 tab
== END 2020-09-07 15:30 | disposition home or self-care (01) | DRG 885 ==
LOC: 3A 15:04 → UNDOADMIN 15:04 → 5A 20:30
PROVIDERS: ADMIT Psychiatry & Neurology Psychiatry; ATTEND Psychiatry & Neurology Psychiatry
DX: F31.5 Bipolar disorder, current episode depressed, severe, with psychotic features (principal); F14.90 Cocaine use, unspecified, uncomplicated; I10 Essential (primary) hypertension; E78.00 Pure hypercholesterolemia, unspecified; K21.9 Gastro-esophageal reflux disease without esophagitis; F10.10 Alcohol abuse, uncomplicated; F12.99 Cannabis use, unspecified with unspecified cannabis-induced disorder; Y90.9 Presence of alcohol in blood, level not specified; E66.9 Obesity, unspecified; E11.42 Type 2 diabetes mellitus with diabetic polyneuropathy; E03.9 Hypothyroidism, unspecified; E78.2 Mixed hyperlipidemia; F17.210 Nicotine dependence, cigarettes, uncomplicated; Z91.19 Patient's noncompliance with other medical treatment and regimen; Z79.899 Other long term (current) drug therapy; Z79.84 Long term (current) use of oral hypoglycemic drugs; Z82.49 Family history of ischemic heart disease and other diseases of the circulatory system; Z83.3 Family history of diabetes mellitus; Z90.49 Acquired absence of other specified parts of digestive tract; Z68.30 Body mass index [BMI] 30.0-30.9, adult
CPT/HCPCS: 36415; 80048; 80061; 80076; 80307; 80320; 81001; 82550; 82553; 82962; 83036; 83735; 84443; 85025; 96372; G0378; A9270-GY; G0480; J1815; Q0177; U0003

== ENCOUNTER 2021-07-15 06:40 | Emergency (ER) | payer MEDICAID ==
--- NOTE | 2021-07-15 06:59 | Emergency Department Report ---
ED Upper Extremity Inj HPI - General Stated Complaint: LT WRIST PAIN Time Seen by Provider: 07/15/21 06:51 - History of Present Illness Initial Comments: Patient is 51 years old female with history of hypertension and GERD. Patient brought to the emergency room via EMS from home for evaluation of left wrist pain. Patient stated that she fell approximately 3 weeks ago in shelter and landed on her left side. Patient stated she did not get x-ray done at that time. 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 Patient denied any other injuries. No other complaint. MD Complaint: Injury to:: left, wrist -: week(s) (3) Other Injuries: none - Related Data Home Medications Medication Instructions Recorded Confirmed Last Taken Amlodipine Besylate 10 mg PO QDAY 09/01/20 09/02/20 Unknown AtorvaSTATin [Lipitor] 10 mg PO QHS 09/01/20 09/02/20 Unknown Levothyroxine Sodium 125 mcg PO QAM 09/01/20 09/02/20 Unknown Metformin HCl [Glucophage] 1,000 mg PO QDAY 09/01/20 09/02/20 Unknown Omeprazole 40 mg PO QDAY 09/01/20 09/02/20 Unknown Sertraline HCl [Zoloft] 100 mg PO QDAY 09/01/20 09/02/20 Unknown hydrOXYzine PAMOATE [Vistaril] 100 mg PO TID PRN 09/01/20 09/02/20 Unknown Previous Rx's Medication Instructions Recorded Last Taken Type OXcarbazepine [Trileptal] 150 mg PO BID 30 Days #60 tab 09/07/20 Unknown Rx risperiDONE [RisperDAL] 0.5 mg PO BID 30 Days #60 tablet 09/07/20 Unknown Rx traZODone [Desyrel] 50 mg PO QHS 30 Days #30 tablet 09/07/20 Unknown Rx Allergies Allergy/AdvReac Type Severity Reaction Status Date / Time No Known Allergies Allergy Verified 09/01/20 13:31 ED Review of Systems ROS: Stated complaint: LT WRIST PAIN Other details as noted in HPI Comment: All other systems reviewed and negative Constitutional: denies: chills, fever Respiratory: denies: cough, shortness of breath, SOB with exertion Cardiovascular: denies: chest pain, palpitations Gastrointestinal: denies: abdominal pain, nausea, vomiting Neurological: denies: headache, weakness, numbness, paresthesias, confusion ED Past Medical Hx - Past Medical History Hx Hypertension: Yes Hx Diabetes: Yes Hx Renal Disease: No Hx Arthritis: Yes Hx Seizures: No Hx Psychiatric Treatment: Yes (PTSD depression, Bipolar) Hx Dementia: No Additional medical history: Anxiety, Traumatic head injury - Surgical History Hx Cholecystectomy: Yes Hx Appendectomy: No Additional Surgical History: Head injury, Thyroid surgery - Social History Smoking Status: Current Every Day Smoker - Medications Home Medications: Home Medications Medication Instructions Recorded Confirmed Last Taken Type Amlodipine Besylate 10 mg PO QDAY 09/01/20 09/02/20 Unknown History AtorvaSTATin [Lipitor] 10 mg PO QHS 09/01/20 09/02/20 Unknown History Levothyroxine Sodium 125 mcg PO QAM 09/01/20 09/02/20 Unknown History Metformin HCl [Glucophage] 1,000 mg PO QDAY 09/01/20 09/02/20 Unknown History Omeprazole 40 mg PO QDAY 09/01/20 09/02/20 Unknown History Sertraline HCl [Zoloft] 100 mg PO QDAY 09/01/20 09/02/20 Unknown History hydrOXYzine PAMOATE [Vistaril] 100 mg PO TID PRN 09/01/20 09/02/20 Unknown History OXcarbazepine [Trileptal] 150 mg PO BID 30 Days #60 tab 09/07/20 Unknown Rx risperiDONE [RisperDAL] 0.5 mg PO BID 30 Days #60 tablet 09/07/20 Unknown Rx traZODone [Desyrel] 50 mg PO QHS 30 Days #30 tablet 09/07/20 Unknown Rx ED Physical Exam - General General appearance: alert, in no apparent distress - Head Head exam: Present: atraumatic, normocephalic, normal inspection - Eye Eye exam: Present: normal appearance, PERRL - ENT ENT exam: Present: normal exam, normal orophraynx, mucous membranes moist - Neck Neck exam: Present: normal inspection, full ROM. Absent: tenderness, meningismus - Respiratory Respiratory exam: Present: normal lung sounds bilaterally - Cardiovascular Cardiovascular Exam: Present: regular rate, normal rhythm, normal heart sounds - GI/Abdominal GI/Abdominal exam: Present: soft, normal bowel sounds. Absent: distended, tenderness, guarding, rebound, rigid, organomegaly, mass, bruit, pulsatile mass, hernia - Expanded Upper Extremity Exam Left Elbow exam: Present: normal inspection, full ROM. Absent: tenderness, swelling Forearm Wrist exam: Present: normal inspection, full ROM. Absent: tenderness, swelling Hand Wrist exam: Present: tenderness, swelling. Absent: full ROM, ecchymosis, deformity, crepidus, dislocation, erythema Neuro motor exam: Present: wrist extension intact, thumb opposition intact, thumb IP flexion intact, thumb adduction intact, fingers 2-5 abduction intact Neurosensory exam: Present: 2-point discrimination, radial nerve intact, ulnar nerve intact, median nerve intact Vascular: Present: normal capillary refill - Back Exam Back exam: Present: normal inspection, full ROM. Absent: CVA tenderness (R), CVA tenderness (L) - Neurological Exam Neurological exam: Present: alert, oriented X3, CN II-XII intact - Psychiatric Psychiatric exam: Present: normal mood - Skin Skin exam: Present: warm, intact, normal color ED Course Vital Signs 07/15/21 07:13 Temperature 98.6 F Pulse Rate 67 Respiratory 16 Rate Blood Pressure 126/56 [Right] O2 Sat by Pulse 98 Oximetry ED Medical Decision Making - Radiology Data Radiology results: report reviewed - Medical Decision Making Patient is 51 years old female with history of hypertension and GERD. Patient brought to the emergency room via EMS from home for evaluation of left wrist pain. Patient stated that she fell approximately 3 weeks ago in shelter and landed on her left side. Patient stated she did not get x-ray done at that time. 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 Patient denied any other injuries. No other complaint. Patient remained stable in the ER with a stable vital sign. Left wrist x-ray showed no fracture or dislocation. Patient given prescription for Naprosyn and advised to follow-up with her primary care physician in the next 2 to 3 days and to return to the ER if he develop any new symptoms. Critical care attestation.: If time is entered above; I have spent that time in minutes in the direct care of this critically ill patient, excluding procedure time. ED Disposition Clinical Impression: Sprain of left wrist Disposition: HOME / SELF CARE / HOMELESS Is pt being admited?: No Condition: Stable Instructions: Wrist Sprain, Adult Referrals: PRIMARY CARE, [Referring] - 3-5 Days Forms: Work/School Release Form(ED)
[2021-07-15 07:14] VITALS: BP 126/56
--- NOTE | 2021-07-15 07:48 | XRay Report ---
LEFT WRIST 4 VIEW(S) INDICATION / CLINICAL INFORMATION: Left wrist injury. COMPARISON: None available. FINDINGS: BONES / JOINT(S): No acute fracture or subluxation. There is moderate degeneration of the first carpo metacarpal joint. SOFT TISSUES: No significant abnormality. ADDITIONAL FINDINGS: None. Signer Name: Daryrl Carver DO Signed: 07/15/2021 7:43 AM Workstation Name: [id number]
== END 2021-07-15 08:50 | disposition home or self-care (01) ==
LOC: ED 06:40
DX: S63.502A Unspecified sprain of left wrist, initial encounter (principal); I10 Essential (primary) hypertension; E11.8 Type 2 diabetes mellitus with unspecified complications; M19.90 Unspecified osteoarthritis, unspecified site; F43.10 Post-traumatic stress disorder, unspecified; F32.9 Major depressive disorder, single episode, unspecified; F41.9 Anxiety disorder, unspecified; Z98.890 Other specified postprocedural states; F17.200 Nicotine dependence, unspecified, uncomplicated; W19.XXXA Unspecified fall, initial encounter; Y93.89 Activity, other specified; Y92.89 Other specified places as the place of occurrence of the external cause; Y99.8 Other external cause status
CPT/HCPCS: 99283

== ENCOUNTER 2022-03-17 17:19 | Emergency (ER) | payer MEDICAID ==
[2022-03-17 17:28] VITALS: BP 120/72
--- NOTE | 2022-03-17 23:10 | XRay Report ---
LEFT HIP 3 VIEW(S) INDICATION / CLINICAL INFORMATION: BACK PAIN COMPARISON: None available. FINDINGS: No fracture, dislocation, or significant soft tissue abnormality is demonstrated. No radiopaque forei gn bodies are identified. Moderate degenerative changes of the lower lumbar spine. IMPRESSION: 1. No acute pathology. No significant abnormality. Signer Name: Justin Kessler II, MD Signed: 03/17/2022 11:05 PM Workstation Name: [id number]
--- NOTE | 2022-03-17 23:11 | XRay Report ---
LUMBAR SPINE 2 VIEWS INDICATION / CLINICAL INFORMATION: BACK PAIN. COMPARISON: None available. FINDINGS: VERTEBRAE: No acute fracture. Dextroscoliosis with apex to the right at L2-3. DISC SPACES / FACET JOINTS:Moderate facet arthropathy throughout lumbar spine. PARASPINAL SOFT TISSUES:No significant abnormality. ADDITIONAL FINDINGS: None. IMPRESSION: 1. Scoliotic deformity of moderate degenerative changes. No acute osseous findings. Signer Name: Justin Kessler II, MD Signed: 03/17/2022 11:06 PM Workstation Name: [id number]
--- NOTE | 2022-03-18 01:21 | Emergency Department Report ---
ED Fall HPI - General Chief Complaint: Extremity Injury, Lower Stated Complaint: LT HIP PAIN Time Seen by Provider: 03/17/22 22:13 Source: EMS Mode of arrival: Stretcher - History of Present Illness MD Complaint: fall -: Gradual Fall From: standing When Fall Occurred: [address] Fall Occurred: home Loss of Consciousness: none Prolonged Down Time?: no Symptoms Prior to Fall: none Location: back Severity: moderate Quality: dull, aching Context: other (Lost her balance and fell backwards onto her buttocks and left hip region) Associated Symptoms: denies: numbness, weakness, shortness of breath, unable to walk, vertigo, confusion - Related Data Home Medications Medication Instructions Recorded Confirmed Last Taken Amlodipine Besylate 10 mg PO QDAY 09/01/20 09/02/20 Unknown AtorvaSTATin [Lipitor] 10 mg PO QHS 09/01/20 09/02/20 Unknown Levothyroxine Sodium 125 mcg PO QAM 09/01/20 09/02/20 Unknown Metformin HCl [Glucophage] 1,000 mg PO QDAY 09/01/20 09/02/20 Unknown Omeprazole 40 mg PO QDAY 09/01/20 09/02/20 Unknown Sertraline HCl [Zoloft] 100 mg PO QDAY 09/01/20 09/02/20 Unknown hydrOXYzine PAMOATE [Vistaril] 100 mg PO TID PRN 09/01/20 09/02/20 Unknown Previous Rx's Medication Instructions Recorded Last Taken Type OXcarbazepine [Trileptal] 150 mg PO BID 30 Days #60 tab 09/07/20 Unknown Rx risperiDONE [RisperDAL] 0.5 mg PO BID 30 Days #60 tablet 09/07/20 Unknown Rx traZODone [Desyrel] 50 mg PO QHS 30 Days #30 tablet 09/07/20 Unknown Rx Naproxen [Naprosyn] 500 mg PO BID #14 tablet 07/15/21 Unknown Rx Meloxicam [Mobic] 7.5 mg PO QDAY #10 tablet 03/18/22 Unknown Rx methOCARBAMOL [Robaxin TAB] 750 mg PO Q8H #20 03/18/22 Unknown Rx Allergies Allergy/AdvReac Type Severity Reaction Status Date / Time No Known Allergies Allergy Verified 09/01/20 13:31 ED Review of Systems ROS: Stated complaint: LT HIP PAIN Other details as noted in HPI Comment: All other systems reviewed and negative ED Past Medical Hx - Past Medical History Hx Hypertension: Yes Hx Congestive Heart Failure: No Hx Diabetes: Yes Hx Renal Disease: No Hx Arthritis: Yes Hx Seizures: No Hx Psychiatric Treatment: Yes (PTSD depression, Bipolar) Hx Asthma: No Hx COPD: No Hx Dementia: No Additional medical history: Anxiety, Traumatic head injury - Surgical History Past Surgical History?: Yes Hx Cholecystectomy: Yes Hx Appendectomy: No Additional Surgical History: Head injury, Thyroid surgery - Social History Smoking Status: Never Smoker Substance Use Type: None - Medications Home Medications: Home Medications Medication Instructions Recorded Confirmed Last Taken Type Amlodipine Besylate 10 mg PO QDAY 09/01/20 09/02/20 Unknown History AtorvaSTATin [Lipitor] 10 mg PO QHS 09/01/20 09/02/20 Unknown History Levothyroxine Sodium 125 mcg PO QAM 09/01/20 09/02/20 Unknown History Metformin HCl [Glucophage] 1,000 mg PO QDAY 09/01/20 09/02/20 Unknown History Omeprazole 40 mg PO QDAY 09/01/20 09/02/20 Unknown History Sertraline HCl [Zoloft] 100 mg PO QDAY 09/01/20 09/02/20 Unknown History hydrOXYzine PAMOATE [Vistaril] 100 mg PO TID PRN 09/01/20 09/02/20 Unknown History OXcarbazepine [Trileptal] 150 mg PO BID 30 Days #60 tab 09/07/20 Unknown Rx risperiDONE [RisperDAL] 0.5 mg PO BID 30 Days #60 tablet 09/07/20 Unknown Rx traZODone [Desyrel] 50 mg PO QHS 30 Days #30 tablet 09/07/20 Unknown Rx Naproxen [Naprosyn] 500 mg PO BID #14 tablet 07/15/21 Unknown Rx Meloxicam [Mobic] 7.5 mg PO QDAY #10 tablet 03/18/22 Unknown Rx methOCARBAMOL [Robaxin TAB] 750 mg PO Q8H #20 03/18/22 Unknown Rx ED Physical Exam - General Limitations: No Limitations General appearance: alert, in no apparent distress - Head Head exam: Present: atraumatic, normocephalic - Eye Eye exam: Present: normal appearance, PERRL, EOMI Pupils: Present: normal accommodation - ENT ENT exam: Present: normal exam, normal orophraynx, mucous membranes moist, TM's normal bilaterally - Neck Neck exam: Present: normal inspection - Respiratory Respiratory exam: Present: normal lung sounds bilaterally. Absent: respiratory distress - Cardiovascular Cardiovascular Exam: Present: regular rate, normal rhythm. Absent: systolic murmur, diastolic murmur, rubs, gallop - GI/Abdominal GI/Abdominal exam: Present: soft, normal bowel sounds - Extremities Exam Extremities exam: Present: normal inspection, normal capillary refill - Back Exam Back exam: Present: normal inspection, paraspinal tenderness. Absent: CVA tenderness (R), CVA tenderness (L) - Neurological Exam Neurological exam: Present: alert, oriented X3, CN II-XII intact, normal gait - Psychiatric Psychiatric exam: Present: normal affect, normal mood - Skin Skin exam: Present: warm, dry, intact, normal color. Absent: rash ED Course Vital Signs 03/17/22 17:22 Temperature 98.1 F Pulse Rate 90 Respiratory 18 Rate Blood Pressure 120/72 O2 Sat by Pulse 96 Oximetry ED Medical Decision Making - Radiology Data Radiology results: report reviewed [facility] [address] [place] [address] XRay Report Signed Patient: NAT BENJAMIN MR#: [id number] : 1970 Acct:[id number] Age/Sex: 51 / F ADM Date: 03/17/22 Loc: ED Attending Dr: Ordering Physician: CARLI EISENBERG Date of Service: 03/17/22 Procedure(s): XR spine lumbosacral 2-3V Accession Number(s): [id number] cc: CARLI EISENBERG Fluoro Time In Minutes: LUMBAR SPINE 2 VIEWS INDICATION / CLINICAL INFORMATION: BACK PAIN. COMPARISON: None available. FINDINGS: VERTEBRAE: No acute fracture. Dextroscoliosis with apex to the right at L2-3. DISC SPACES / FACET JOINTS:Moderate facet arthropathy throughout lumbar spine. PARASPINAL SOFT TISSUES:No significant abnormality. ADDITIONAL FINDINGS: None. IMPRESSION: 1. Scoliotic deformity of moderate degenerative changes. No acute osseous findings. Signer Name: Karen Mclaughlin II, MD Signed: 03/17/2022 11:06 PM Workstation Name: [id number] Transcribed By: MANFRED Dictated By: KAREN MCLAUGHLIN II, MD Electronically Authenticated By: KAREN MCLAUGHLIN II, MD Signed Date/Time: 03/17/222305 DD/ 04 TD/TT:[facility] [address] [place] [address] XRay Report Signed Patient: NAT BENJAMIN MR#: [id number] : 1970 Acct:[id number] Age/Sex: 51 / F ADM Date: 03/17/22 Loc: ED Attending Dr: Ordering Physician: CARLI EISENBERG Date of Service: 03/17/22 Procedure(s): XR hip 2-3V LT Accession Number(s): [id number] cc: CARLI EISENBERG Fluoro Time In Minutes: LEFT HIP 3 VIEW(S) INDICATION / CLINICAL INFORMATION: BACK PAIN COMPARISON: None available. FINDINGS: No fracture, dislocation, or significant soft tissue abnormality is demonstrated. No radiopaque foreign bodies are identified. Moderate degenerative changes of the lower lumbar spine. IMPRESSION: 1. No acute pathology. No significant abnormality. Signer Name: Karen Mclaughlin II, MD Signed: 03/17/2022 11:05 PM Workstation Name: [id number] Transcribed By: MANFRED Dictated By: KAREN MCLAUGHLIN II, MD Electronically Authenticated By: KAREN MCLAUGHLIN II, MD Signed Date/Time: 03/17/222304 DD/ 03 TD/TT: Critical care attestation.: If time is entered above; I have spent that time in minutes in the direct care of this critically ill patient, excluding procedure time. ED Disposition Clinical Impression: Fall, Lumbago, Arthritis Disposition: 01 HOME / SELF CARE / HOMELESS Is pt being admited?: No Does the pt Need Aspirin: No Condition: Stable Instructions: Preventing Osteoarthritis, Adult, Back Exercises, [id number], Arthritis Prescriptions: Meloxicam [Mobic] 7.5 mg PO QDAY #10 tablet methOCARBAMOL [Robaxin TAB] 750 mg PO Q8H #20 Referrals: EDITH LAND MD [Other] - 3-5 Days
== END 2022-03-18 02:00 | disposition home or self-care (01) ==
LOC: ED 17:19
DX: M54.50 Low back pain, unspecified (principal); M19.90 Unspecified osteoarthritis, unspecified site; I10 Essential (primary) hypertension; E11.9 Type 2 diabetes mellitus without complications; F43.10 Post-traumatic stress disorder, unspecified; F32.9 Major depressive disorder, single episode, unspecified; F41.9 Anxiety disorder, unspecified; Z98.890 Other specified postprocedural states; W19.XXXA Unspecified fall, initial encounter; Y93.89 Activity, other specified; Y92.89 Other specified places as the place of occurrence of the external cause; Y99.8 Other external cause status
CPT/HCPCS: 72100; 99283